=== PATIENT | male | born 1960 | race Hispanic/Latino ===

== ENCOUNTER 2018-04-03 09:45 | Inpatient (IN) | payer OTHER ==
[2018-04-03] MEDS ORDERED: LASIX IV ONE (10:54)
[2018-04-03] MEDS ORDERED: DUONEB *Not for PRN Use IH ONE (10:54)
[2018-04-03] MEDS ORDERED: NACL 0.9% 1000 ML 2,500 ML IV ONE (10:55)
--- NOTE | 2018-04-03 11:18 | Emergency Department Report ---
HPI - General Chief Complaint: Dyspnea/Respdistress Time Seen by Provider: 04/03/18 10:25 - HPI HPI: Patient is a 57-year-old male with a history of lung cancer, on chemotherapy, who presents for evaluation of dyspnea. The patient reports 1 day of constant and severe dyspnea, exacerbated with exertion or activity, improved with sitting up at rest. He also reports associated productive cough for the past one to 2 days. The patient denies fever, chest pain, neck pain, parasthesias, hemoptysis, dizziness, syncope, unilateral leg swelling, calf muscle pain. ED Past Medical Hx - Past Medical History Hx Hypertension: Yes Hx Diabetes: Yes Additional medical history: Lung CA - Social History Smoking Status: Former Smoker Substance Use Type: None - Medications Home Medications: Home Medications Medication Instructions Recorded Confirmed Last Taken Type Meclizine [Antivert] 25 mg PO TID PRN #30 tablet 01/27/16 04/03/18 Unknown Rx Promethazine [Phenergan TAB] 25 mg PO Q6HR PRN #20 tab 01/27/16 04/03/18 Unknown Rx Losartan 50 mg PO DAILY 04/03/18 04/03/18 Unknown History metFORMIN 500 mg PO BID 04/03/18 04/03/18 Unknown History ED Review of Systems ROS: Stated complaint: SHORTNESS OF BREATH Other details as noted in HPI Constitutional: denies: fever ENT: denies: throat or neck pain Respiratory: reports: cough, shortness of breath Cardiovascular: denies: chest pain Endocrine: denies unexplained weight loss or gain Gastrointestinal: denies: abdominal pain, nausea Genitourinary: denies: dysuria Musculoskeletal: denies: leg swelling Skin: denies: rash Neurological: denies: headache Hematological/Lymphatic: denies: easy bleeding or easy bruising Psych: denies sadness or hopelessness Physical Exam - Physical Exam Vital Signs: Vital Signs 04/03/18 09:50 Temperature 98.4 F Pulse Rate 131 H Respiratory 28 H Rate Blood Pressure 133/86 O2 Sat by Pulse 84 Oximetry Physical Exam: General: well-nourished, well-developed, in mild respiratory distress Head: Normocephalic, atraumatic Eyes: normal sclera ENT: Mucous membranes are pale and dry Neck: trachea midline, neck supple, No neck stiffness, no cervical adenopathy Respiratory: Diminished breath sounds and rhonchi present to bibasilar lung godinez, wheezing present to a prolonged feels Cardio: S1 and S2 present, no murmurs, rubs, gallops, capillary refill is delayed Abdomen: Normoactive bowel sounds, soft abdomen, no rigidity, no guarding or rebound tenderness Chest WALL/Back: No tenderness to palpation of the chest wall, no CVA tenderness with percussion Musc: No pitting edema Skin: No rash Neuro: no facial drooping, normal speech Psych: Normal affect ED Course Vital Signs 04/03/18 09:50 Temperature 98.4 F Pulse Rate 131 H Respiratory 28 H Rate Blood Pressure 133/86 O2 Sat by Pulse 84 Oximetry ED Medical Decision Making - Lab Data Result diagrams: 04/03/18 11:06 04/03/18 11:06 - Medical Decision Making The patient was seen and examined by myself. The patient is placed on a groundwater monitoring technician and continuous pulse ox. On initial evaluation, the patient was found to be in mild respiratory distress with low oxygen saturation, O2 sat 85% on room air. The patient is placed on a nonrebreather and given a neb breathing treatment. Evaluation orders were placed. Multiple bedside assessments were performed to assess patient's responsiveness to breathing treatments and supplemental oxygenation. EKG is negative for ST elevation or depression or other changes suggestive of acute cardiac infarct. Lab results revealed leukocytosis, WBC 16.9, elevated lactic acid 3, Chest x-ray exhibits bilateral upper lobe pneumonia. The patient given IV Zosyn for treatment of probable pneumonia. The on-call hospitalist service was contacted. They agreed to admit the patient for further treatment and close monitoring. The ED admit order was placed. The patient was admitted in guarded condition. Critical Care Time: Yes Critical care time in (mins) excluding proc time.: 35 Critical care attestation.: Due to the critical nature of this patients presentation, which necessitated multiple bedside assessments, manipulation and supportive measures to prevent further life threatening deterioration, I would like to bill for a total of 35 minutes of critical care time. This was exclusive of any separately billable procedures. Critical Care Time: 35 min ED Disposition Clinical Impression: Dehydration, Acute respiratory failure with hypoxia, Lactic acidosis Pneumonia Qualifiers: Pneumonia type: due to unspecified organism Laterality: bilateral Lung location : upper lobe of lung Qualified Code(s): J18.1 - Lobar pneumonia, unspecified organism Leukocytosis Qualifiers: Leukocytosis type: unspecified Qualified Code(s): D72.829 - Elevated white blood cell count, unspecified Disposition: DC-09 OP ADMIT IP TO THIS HOSP Is pt being admited?: Yes Does the pt Need Aspirin: Yes Condition: Critical Instructions: Bacterial Pneumonia (ED) Referrals: PRIMARY CARE, [Primary Care Provider] - 3-5 Days Time of Disposition: 12:13
[2018-04-03 11:48] LABS: Hematocrit 30.6 % (35.5-45.6); Hemoglobin 10.8 gm/dl (11.8-15.2); Mean Corpuscular HGB Conc 35 % (32-34); Mean Corpuscular Hemoglobin 32 pg (28-32); Mean Corpuscular Volume 92 fl (84-94); Platelet Count 384 K/mm3 (140-440); Red Blood Count 3.33 M/mm3 (3.65-5.03)
--- NOTE | 2018-04-03 11:50 | XRay Report ---
FINAL REPORT EXAM: XR CHEST 1V AP HISTORY: dyspnea, cough TECHNIQUE: Chest, portable upright PRIORS: None. FINDINGS: There is infiltrate in the right lower lobe. There is a small right pleural effusion. There is some patchy infiltrate in the left midlung. There is no pneumothorax seen. IMPRESSION: Left upper and right lower lobe infiltrates. Small right pleural effusion.
[2018-04-03] MEDS ORDERED: BABY ASPIRIN PO ONE (12:14)
[2018-04-03 12:28] LABS: Alanine Aminotransferase 52 units/L (7-56); BUN/Creatinine Ratio 22; Blood Urea Nitrogen 11 mg/dL (9-20); Calcium 8.9 mg/dL (8.4-10.2); Hemolysis Index 4
[2018-04-03] MEDS ORDERED: ZOSYN/NS 3.375GM/50ML 3.375 GM/50 ML BAG IV ONE (13:00)
[2018-04-03 14:06] LABS: Band Neutrophils # (Manual) 0.3 K/mm3; Basophils % (Manual) 0 % (0.0-1.8); Eosinophils % (Manual) 0 % (0.0-4.3); Total Cells Counted 100
[2018-04-03 14:09] LABS: Platelet Estimate Consistent w Auto; RBC Morphology Normal
[2018-04-03] MEDS ORDERED: TYLENOL PO PRN (21:53)
[2018-04-03] MEDS ORDERED: ZOFRAN IV PRN (21:53)
[2018-04-03] MEDS ORDERED: PERCOCET 5/325 PO PRN ×2 (21:53→21:58)
[2018-04-03] MEDS ORDERED: MORPHINE IV PRN (21:53)
[2018-04-03] MEDS ORDERED: SODIUM CHLORIDE FLUSH SYRINGE 10 ML IV PRN (21:53)
--- NOTE | 2018-04-03 21:53 | History and Physical Report ---
History of Present Illness Date of examination: 04/03/18 Date of admission: 04/03/18 13:45 Chief complaint: Chief complaint: Cough and shortness of breath for 2 days History of present illness: KATLYN: 57-year-old male with history of hypertension and type 2 diabetes and lung cancer diagnosed in 2011 followed by chemotherapy at that time comes in for cough productive of yellow sputum for 2 days. Also shortness of breath and wheezing present. Patient denies fever. No hemoptysis. No chest pain. Patient had chemotherapy in 2011. Also had radiation therapy at that time. Follows with [place] [facility]. Patient was hypoxic initially and 100% nonrebreather has to be used. Symptoms resolved with oxygen. Past Medical History Hx Hypertension: Yes Hx Diabetes: Yes Additional medical history: Lung CA Social History Smoking Status: Former Smoker Substance Use Type: None Family history Htn Surgical history N/A - Medications Home Medications: Home Medications Medication Instructions Recorded Confirmed Last Taken Type Meclizine [Antivert] 25 mg PO TID PRN #30 tablet 01/27/16 04/03/18 Unknown Rx Promethazine [Phenergan TAB] 25 mg PO Q6HR PRN #20 tab 01/27/16 04/03/18 Unknown Rx Losartan 50 mg PO DAILY 04/03/18 04/03/18 Unknown History metFORMIN 500 mg PO BID 04/03/18 04/03/18 Unknown History Review of Systems ROS: Stated complaint: SHORTNESS OF BREATH Other details as noted in HPI Constitutional: denies: fever ENT: denies: throat or neck pain Respiratory: reports: cough, shortness of breath Cardiovascular: denies: chest pain Endocrine: denies unexplained weight loss or gain Gastrointestinal: denies: abdominal pain, nausea Genitourinary: denies: dysuria Musculoskeletal: denies: leg swelling Skin: denies: rash Neurological: denies: headache Hematological/Lymphatic: denies: easy bleeding or easy bruising Psych: denies sadness or hopelessness Medications and Allergies Allergies Allergy/AdvReac Type Severity Reaction Status Date / Time No Known Allergies Allergy Verified 04/03/18 09:50 Home Medications Medication Instructions Recorded Confirmed Last Taken Type Meclizine [Antivert] 25 mg PO TID PRN #30 tablet 01/27/16 04/03/18 Unknown Rx Promethazine [Phenergan TAB] 25 mg PO Q6HR PRN #20 tab 01/27/16 04/03/18 Unknown Rx Losartan 50 mg PO DAILY 04/03/18 04/03/18 Unknown History metFORMIN 500 mg PO BID 04/03/18 04/03/18 Unknown History Exam - Constitutional Vitals: Temp Pulse Resp BP Pulse Ox 98.1 F 92 H 18 95/62 96 04/03/18 19:48 04/03/18 21:00 04/03/18 19:48 04/03/18 19:48 04/03/18 19:48 General appearance: Present: no acute distress, well-nourished - EENT Eyes: Present: PERRL ENT: hearing intact, clear oral mucosa - Neck Neck: Present: supple, normal ROM - Respiratory Respiratory effort: normal Respiratory: bilateral: CTA, rhonchi - Cardiovascular Heart rate: 80 Rhythm: regular Heart Sounds: Present: S1 & S2. Absent: rub, click - Extremities Extremities: no ischemia, pulses intact, pulses symmetrical, No edema Peripheral Pulses: within normal limits - Abdominal General gastrointestinal: Present: soft, non-tender, non-distended, normal bowel sounds Male genitourinary: Present: normal - Rectal Rectal Exam: deferred - Integumentary Integumentary: Present: clear, warm, dry - Musculoskeletal Musculoskeletal: gait normal, strength equal bilaterally - Psychiatric Psychiatric: appropriate mood/affect, intact judgment & insight - Neurologic Neurologic: CNII-XII intact, moves all extremities - Allied Health Allied health notes reviewed: nursing, case management Results - Labs CBC & Chem 7: 04/03/18 11:06 04/03/18 11:06 Labs: Laboratory Last Values WBC 16.9 K/mm3 (4.5-11.0) H 04/03/18 11:06 RBC 3.33 M/mm3 (3.65-5.03) L 04/03/18 11:06 Hgb 10.8 gm/dl (11.8-15.2) L 04/03/18 11:06 Hct 30.6 % (35.5-45.6) L 04/03/18 11:06 MCV 92 fl (84-94) 04/03/18 11:06 MCH 32 pg (28-32) 04/03/18 11:06 MCHC 35 % (32-34) H 04/03/18 11:06 RDW 15.0 % (13.2-15.2) 04/03/18 11:06 Plt Count 384 K/mm3 (140-440) 04/03/18 11:06 Add Manual Diff Complete 04/03/18 11:06 Total Counted 100 04/03/18 11:06 Seg Neutrophils % Ice Bag Assembler 04/03/18 11:06 Seg Neuts % (Manual) 94.0 % (40.0-70.0) H 04/03/18 11:06 Band Neutrophils % 2.0 % 04/03/18 11:06 Lymphocytes % (Manual) 1.0 % (13.4-35.0) L 04/03/18 11:06 Reactive Lymphs % (Man) 0 % 04/03/18 11:06 Monocytes % (Manual) 3.0 % (0.0-7.3) 04/03/18 11:06 Eosinophils % (Manual) 0 % (0.0-4.3) 04/03/18 11:06 Basophils % (Manual) 0 % (0.0-1.8) 04/03/18 11:06 Metamyelocytes % 0 % 04/03/18 11:06 Myelocytes % 0 % 04/03/18 11:06 Promyelocytes % 0 % 04/03/18 11:06 Blast Cells % 0 % 04/03/18 11:06 Nucleated RBC % Not Reportable 04/03/18 11:06 Seg Neutrophils # Man 15.9 K/mm3 (1.8-7.7) H 04/03/18 11:06 Band Neutrophils # 0.3 K/mm3 04/03/18 11:06 Lymphocytes # (Manual) 0.2 K/mm3 (1.2-5.4) L 04/03/18 11:06 Abs React Lymphs (Man) 0.0 K/mm3 04/03/18 11:06 Monocytes # (Manual) 0.5 K/mm3 (0.0-0.8) 04/03/18 11:06 Eosinophils # (Manual) 0.0 K/mm3 (0.0-0.4) 04/03/18 11:06 Basophils # (Manual) 0.0 K/mm3 (0.0-0.1) 04/03/18 11:06 Metamyelocytes # 0.0 K/mm3 04/03/18 11:06 Myelocytes # 0.0 K/mm3 04/03/18 11:06 Promyelocytes # 0.0 K/mm3 04/03/18 11:06 Blast Cells # 0.0 K/mm3 04/03/18 11:06 WBC Morphology Not Reportable 04/03/18 11:06 Hypersegmented Neuts Not Reportable 04/03/18 11:06 Hyposegmented Neuts Not Reportable 04/03/18 11:06 Hypogranular Neuts Not Reportable 04/03/18 11:06 Smudge Cells Not Reportable 04/03/18 11:06 Toxic Granulation Not Reportable 04/03/18 11:06 Toxic Vacuolation Not Reportable 04/03/18 11:06 Dohle Bodies Not Reportable 04/03/18 11:06 Pelger-Huet Anomaly Not Reportable 04/03/18 11:06 Marlene Rods Not Reportable 04/03/18 11:06 Platelet Estimate Consistent w auto 04/03/18 11:06 Clumped Platelets Not Reportable 04/03/18 11:06 Plt Clumps, EDTA Not Reportable 04/03/18 11:06 Large Platelets Not Reportable 04/03/18 11:06 Giant Platelets Not Reportable 04/03/18 11:06 Platelet Satelliting Not Reportable 04/03/18 11:06 Plt Morphology Comment Not Reportable 04/03/18 11:06 RBC Morphology Normal 04/03/18 11:06 Dimorphic RBCs Not Reportable 04/03/18 11:06 Polychromasia Not Reportable 04/03/18 11:06 Hypochromasia Not Reportable 04/03/18 11:06 Poikilocytosis Not Reportable 04/03/18 11:06 Anisocytosis Not Reportable 04/03/18 11:06 Microcytosis Not Reportable 04/03/18 11:06 Macrocytosis Not Reportable 04/03/18 11:06 Spherocytes Not Reportable 04/03/18 11:06 Pappenheimer Bodies Not Reportable 04/03/18 11:06 Sickle Cells Not Reportable 04/03/18 11:06 Target Cells Not Reportable 04/03/18 11:06 Tear Drop Cells Not Reportable 04/03/18 11:06 Ovalocytes Not Reportable 04/03/18 11:06 Helmet Cells Not Reportable 04/03/18 11:06 [place] Bodies Not Reportable 04/03/18 11:06 [place] Rings Not Reportable 04/03/18 11:06 [place] Cells Not Reportable 04/03/18 11:06 Bite Cells Not Reportable 04/03/18 11:06 Crenated Cell Not Reportable 04/03/18 11:06 Elliptocytes Not Reportable 04/03/18 11:06 Acanthocytes (Spur) Not Reportable 04/03/18 11:06 Rouleaux Not Reportable 04/03/18 11:06 Hemoglobin C Crystals Not Reportable 04/03/18 11:06 Schistocytes Not Reportable 04/03/18 11:06 Malaria parasites Not Reportable 04/03/18 11:06 Yaniv Bodies Not Reportable 04/03/18 11:06 Hem Pathologist Commnt No 04/03/18 11:06 POC ABG pH 7.475 (7.35-7.45) H 04/03/18 11:32 POC ABG pCO2 28.7 (35-45) L 04/03/18 11:32 POC ABG pO2 87 (80-105) 04/03/18 11:32 POC ABG HCO3 21.1 04/03/18 11:32 POC ABG Total CO2 22 04/03/18 11:32 POC ABG O2 Sat 97 04/03/18 11:32 POC ABG Base Excess -2 04/03/18 11:32 FiO2 100 % 04/03/18 11:32 Sodium 129 mmol/L (137-145) L 04/03/18 11:06 Potassium 4.4 mmol/L (3.6-5.0) 04/03/18 11:06 Chloride 88.1 mmol/L (98-107) L 04/03/18 11:06 Carbon Dioxide 20 mmol/L (22-30) L 04/03/18 11:06 Anion Gap 25 mmol/L 04/03/18 11:06 BUN 11 mg/dL (9-20) 04/03/18 11:06 Creatinine 0.5 mg/dL (0.8-1.5) L 04/03/18 11:06 Estimated GFR > 60 ml/min 04/03/18 11:06 BUN/Creatinine Ratio 22 % 04/03/18 11:06 Glucose 154 mg/dL (75-100) H 04/03/18 11:06 Lactic Acid 2.90 mmol/L (0.7-2.0) H* 04/03/18 19:28 Calcium 8.9 mg/dL (8.4-10.2) 04/03/18 11:06 Total Bilirubin 0.80 mg/dL (0.1-1.2) 04/03/18 11:06 AST 32 units/L (5-40) 04/03/18 11:06 ALT 52 units/L (7-56) 04/03/18 11:06 Alkaline Phosphatase 92 units/L (35-129) 04/03/18 11:06 NT-Pro-B Natriuret Pep 388.8 pg/mL (0-900) 04/03/18 11:06 Total Protein 6.4 g/dL (6.3-8.2) 04/03/18 11:06 Albumin 3.0 g/dL (3.9-5) L 04/03/18 11:06 Albumin/Globulin Ratio 0.9 % 04/03/18 11:06 - Imaging and Cardiology EKG: report reviewed (sinus tachycardia heart rate of 117 per minute no acute ST-T wave changes) Imaging and Cardiology: Chest x-ray: FINDINGS: There is infiltrate in the right lower lobe. There is a small right pleural effusion. There is some patchy infiltrate in the left midlung. There is no pneumothorax seen. IMPRESSION: Left upper and right lower lobe infiltrates. Small right pleural effusion. Assessment and Plan Advance Directives: Yes (full code) VTE prophylaxis?: Chemical Plan of care discussed with patient/family: Yes - Patient Problems (1) Acute respiratory failure with hypoxia Current Visit: Yes Status: Acute Plan to address problem: Continue oxygen as needed Duonebs IV Solu-Medrol and IV Zosyn (2) Bilateral pneumonia Current Visit: Yes Status: Acute Plan to address problem: IV Zosyn and bronchodilators (3) Lung cancer Current Visit: Yes Status: Chronic Qualifiers: Laterality: unspecified laterality Plan to address problem: Patient follows with [facility] Dr Curtis consulted (4) HTN (hypertension) Current Visit: Yes Status: Chronic Qualifiers: Hypertension type: essential hypertension Qualified Code(s): I10 - Essential (primary) hypertension Plan to address problem: Continue antihypertensives (5) T2DM (type 2 diabetes mellitus) Current Visit: Yes Status: Chronic Qualifiers: Diabetes mellitus chcf insulin use: without head screen worker use Plan to address problem: continue metformin Continue coverage Check hemoglobin A1c (6) DVT prophylaxis Current Visit: Yes Status: Acute Plan to address problem: Patient initiated on Lovenox 40 mg subcutaneous daily
[2018-04-03] MEDS ORDERED: NACL 0.9% 1000 ML 1,000 ML IV SCH (22:00)
[2018-04-03] MEDS ORDERED: PHENERGAN PO PRN (22:04)
[2018-04-03] MEDS ORDERED: ANTIVERT PO PRN (22:04)
[2018-04-03] MEDS ORDERED: NON-FORMULARY (Metformin 500 MG) PO SCH (22:15)
[2018-04-04] MEDS: GLUCOPHAGE PO SCH ×3 (02:04→17:58)
[2018-04-04] MEDS: PEPCID IV SCH ×3 (02:05→21:26)
[2018-04-04] MEDS: SODIUM CHLORIDE FLUSH SYRINGE 10 ML IV SCH ×3 (02:05→21:26)
[2018-04-04] MEDS: ZOSYN/NS 4.5GM/100ML 4.5 GM/100 ML VIAL IV SCH ×4 (02:05→21:25)
[2018-04-04] MEDS: NACL 0.9% 1000 ML 1,000 ML IV SCH ×2 (02:11→13:44)
[2018-04-04 04:30] LABS: Hematocrit 29.5 % (35.5-45.6); Hemoglobin 9.7 gm/dl (11.8-15.2); Mean Corpuscular HGB Conc 33 % (32-34); Mean Corpuscular Hemoglobin 31 pg (28-32); Mean Corpuscular Volume 93 fl (84-94); Platelet Count 354 K/mm3 (140-440); Red Blood Count 3.16 M/mm3 (3.65-5.03); Red Cell Distribution Width 15.2 % (13.2-15.2)
[2018-04-04 05:31] LABS: Basophils % (Manual) 0 % (0.0-1.8); Eosinophils % (Manual) 0 % (0.0-4.3); Total Cells Counted 100
[2018-04-04 05:33] LABS: Anisocytosis 1+; Platelet Estimate Consistent w Auto
[2018-04-04 06:05] LABS: Alanine Aminotransferase 47 units/L (7-56); Albumin 2.5 g/dL (3.9-5); BUN/Creatinine Ratio 30; Blood Urea Nitrogen 15 mg/dL (9-20); Calcium 9.3 mg/dL (8.4-10.2); Hemolysis Index 0
[2018-04-04] MEDS: COZAAR PO SCH (09:08)
[2018-04-04] MEDS: HumaLOG SUB-Q SCH ×4 (09:09→22:55)
[2018-04-04] MEDS: DUONEB *Not for PRN Use IH SCH ×4 (09:10→20:42)
--- NOTE | 2018-04-04 09:39 | Event Note ---
Date: 04/04/18 records reviewed, asked to see for lung ca. labs reviewed, Full eval/rec to follow.
[2018-04-04] MEDS ORDERED: NON-FORMULARY (Losartan 50 MG) PO SCH (10:00)
--- NOTE | 2018-04-04 14:09 | Progress Note ---
Assessment and Plan Assessment and plan: Mr. Caceres is a 57 yo man with a history of tonsil cancer, hypertension, type 2 dm and Lung cancer diagnosis last year now with metastatic disease to the right hip and right rib currently on chemotherapy per patient who presented with sob and cough. * pCXR showed bilateral upper lung infiltrates. 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 Follow-up on current diagnosis of sob and cough. Overnight uneventful. Patient denies any chest pain, nausea/vomiting or severe headaches. Imaging, nursing note, chart, labs and old chart reviewed. Discussed with patient. Hospitalist Physical - Physical exam Narrative exam: GEN: ill appearing, thin frail, NAD, Awake, Alert, Orientated HEENT: NCAT, EOMI, PERRL, OP Clear NECK: supple, no adenopathy, no thyromegaly, no JVD CVS/HEART: RRR, normal S1S2, pulses present bilaterally CHEST/LUNGS: coarse bs bilaterally, Symmetrical chest expansion, good air entry bilaterally GI/Abdomen: soft, NTND, good bowel sounds, no guarding or rebound /Bladder: no suprapubic tenderness, no CVA or paraspinal tenderness EXT/Skin: no c/c/e, no obvious rash MSK: FROM x 4 Neuro: CN 2-12 grossly intact, no new focal deficits Psych: calm - Constitutional Vitals: Temp Pulse Resp BP Pulse Ox 98.0 F 97 H 18 92/55 94 04/04/18 11:23 04/04/18 11:23 04/04/18 11:23 04/04/18 11:23 04/04/18 11:23 General appearance: Present: no acute distress, well-nourished Results - Labs CBC & Chem 7: 04/04/18 04:07 04/04/18 04:07 Labs: Laboratory Last Values WBC 11.2 K/mm3 (4.5-11.0) H 04/04/18 04:07 RBC 3.16 M/mm3 (3.65-5.03) L 04/04/18 04:07 Hgb 9.7 gm/dl (11.8-15.2) L 04/04/18 04:07 Hct 29.5 % (35.5-45.6) L 04/04/18 04:07 MCV 93 fl (84-94) 04/04/18 04:07 MCH 31 pg (28-32) 04/04/18 04:07 MCHC 33 % (32-34) 04/04/18 04:07 RDW 15.2 % (13.2-15.2) 04/04/18 04:07 Plt Count 354 K/mm3 (140-440) 04/04/18 04:07 Add Manual Diff Complete 04/04/18 04:07 Total Counted 100 04/04/18 04:07 Seg Neutrophils % Purchasing Director 04/04/18 04:07 Seg Neuts % (Manual) 62.0 % (40.0-70.0) 04/04/18 04:07 Band Neutrophils % 36.0 % 04/04/18 04:07 Lymphocytes % (Manual) 1.0 % (13.4-35.0) L 04/04/18 04:07 Reactive Lymphs % (Man) 0 % 04/04/18 04:07 Monocytes % (Manual) 1.0 % (0.0-7.3) 04/04/18 04:07 Eosinophils % (Manual) 0 % (0.0-4.3) 04/04/18 04:07 Basophils % (Manual) 0 % (0.0-1.8) 04/04/18 04:07 Metamyelocytes % 0 % 04/04/18 04:07 Myelocytes % 0 % 04/04/18 04:07 Promyelocytes % 0 % 04/04/18 04:07 Blast Cells % 0 % 04/04/18 04:07 Nucleated RBC % Not Reportable 04/04/18 04:07 Seg Neutrophils # Man 6.9 K/mm3 (1.8-7.7) 04/04/18 04:07 Band Neutrophils # 4.0 K/mm3 04/04/18 04:07 Lymphocytes # (Manual) 0.1 K/mm3 (1.2-5.4) L 04/04/18 04:07 Abs React Lymphs (Man) 0.0 K/mm3 04/04/18 04:07 Monocytes # (Manual) 0.1 K/mm3 (0.0-0.8) 04/04/18 04:07 Eosinophils # (Manual) 0.0 K/mm3 (0.0-0.4) 04/04/18 04:07 Basophils # (Manual) 0.0 K/mm3 (0.0-0.1) 04/04/18 04:07 Metamyelocytes # 0.0 K/mm3 04/04/18 04:07 Myelocytes # 0.0 K/mm3 04/04/18 04:07 Promyelocytes # 0.0 K/mm3 04/04/18 04:07 Blast Cells # 0.0 K/mm3 04/04/18 04:07 WBC Morphology Not Reportable 04/04/18 04:07 Hypersegmented Neuts Not Reportable 04/04/18 04:07 Hyposegmented Neuts Not Reportable 04/04/18 04:07 Hypogranular Neuts Not Reportable 04/04/18 04:07 Smudge Cells Not Reportable 04/04/18 04:07 Toxic Granulation Not Reportable 04/04/18 04:07 Toxic Vacuolation Not Reportable 04/04/18 04:07 Dohle Bodies Not Reportable 04/04/18 04:07 Pelger-Huet Anomaly Not Reportable 04/04/18 04:07 Marlene Rods Not Reportable 04/04/18 04:07 Platelet Estimate Consistent w auto 04/04/18 04:07 Clumped Platelets Not Reportable 04/04/18 04:07 Plt Clumps, EDTA Not Reportable 04/04/18 04:07 Large Platelets Not Reportable 04/04/18 04:07 Giant Platelets Not Reportable 04/04/18 04:07 Platelet Satelliting Not Reportable 04/04/18 04:07 Plt Morphology Comment Not Reportable 04/04/18 04:07 RBC Morphology Not Reportable 04/04/18 04:07 Dimorphic RBCs Not Reportable 04/04/18 04:07 Polychromasia Not Reportable 04/04/18 04:07 Hypochromasia Not Reportable 04/04/18 04:07 Poikilocytosis Not Reportable 04/04/18 04:07 Anisocytosis 1+ 04/04/18 04:07 Microcytosis Not Reportable 04/04/18 04:07 Macrocytosis Not Reportable 04/04/18 04:07 Spherocytes Not Reportable 04/04/18 04:07 Pappenheimer Bodies Not Reportable 04/04/18 04:07 Sickle Cells Not Reportable 04/04/18 04:07 Target Cells Not Reportable 04/04/18 04:07 Tear Drop Cells Not Reportable 04/04/18 04:07 Ovalocytes Not Reportable 04/04/18 04:07 Helmet Cells Not Reportable 04/04/18 04:07 [place] Bodies Not Reportable 04/04/18 04:07 [place] Rings Not Reportable 04/04/18 04:07 [place] Cells Not Reportable 04/04/18 04:07 Bite Cells Not Reportable 04/04/18 04:07 Crenated Cell Not Reportable 04/04/18 04:07 Elliptocytes Not Reportable 04/04/18 04:07 Acanthocytes (Spur) Not Reportable 04/04/18 04:07 Rouleaux Not Reportable 04/04/18 04:07 Hemoglobin C Crystals Not Reportable 04/04/18 04:07 Schistocytes Not Reportable 04/04/18 04:07 Malaria parasites Not Reportable 04/04/18 04:07 Yaniv Bodies Not Reportable 04/04/18 04:07 Hem Pathologist Commnt No 04/04/18 04:07 POC ABG pH 7.475 (7.35-7.45) H 04/03/18 11:32 POC ABG pCO2 28.7 (35-45) L 04/03/18 11:32 POC ABG pO2 87 (80-105) 04/03/18 11:32 POC ABG HCO3 21.1 04/03/18 11:32 POC ABG Total CO2 22 04/03/18 11:32 POC ABG O2 Sat 97 04/03/18 11:32 POC ABG Base Excess -2 04/03/18 11:32 FiO2 100 % 04/03/18 11:32 Sodium 133 mmol/L (137-145) L 04/04/18 04:07 Potassium 4.3 mmol/L (3.6-5.0) 04/04/18 04:07 Chloride 93.3 mmol/L (98-107) L 04/04/18 04:07 Carbon Dioxide 28 mmol/L (22-30) D 04/04/18 04:07 Anion Gap 16 mmol/L 04/04/18 04:07 BUN 15 mg/dL (9-20) 04/04/18 04:07 Creatinine 0.5 mg/dL (0.8-1.5) L 04/04/18 04:07 Estimated GFR > 60 ml/min 04/04/18 04:07 BUN/Creatinine Ratio 30 % 04/04/18 04:07 Glucose 204 mg/dL (75-100) H 04/04/18 04:07 POC Glucose 293 (70-105) H 04/04/18 11:30 Hemoglobin A1c 7.2 % (4-6) H 04/03/18 21:53 Osmolality 281 Mosm/kg 04/03/18 23:33 Lactic Acid 1.60 mmol/L (0.7-2.0) 04/04/18 04:07 Calcium 9.3 mg/dL (8.4-10.2) 04/04/18 04:07 Total Bilirubin 0.50 mg/dL (0.1-1.2) 04/04/18 04:07 AST 42 units/L (5-40) H 04/04/18 04:07 ALT 47 units/L (7-56) 04/04/18 04:07 Alkaline Phosphatase 73 units/L (35-129) 04/04/18 04:07 NT-Pro-B Natriuret Pep 388.8 pg/mL (0-900) 04/03/18 11:06 Total Protein 6.3 g/dL (6.3-8.2) 04/04/18 04:07 Albumin 2.5 g/dL (3.9-5) L 04/04/18 04:07 Albumin/Globulin Ratio 0.7 % 04/04/18 04:07
[2018-04-04] MEDS: TESSALON PERLES PO SCH ×2 (17:58→21:26)
--- NOTE | 2018-04-04 22:27 | Consultation ---
History of Present Illness - Reason for Consult Consult date: 04/04/18 Lung cancer. 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 Past History Past Medical History: diabetes Medications and Allergies Allergies Allergy/AdvReac Type Severity Reaction Status Date / Time No Known Allergies Allergy Verified 04/03/18 09:50 Home Medications Medication Instructions Recorded Confirmed Last Taken Type Meclizine [Antivert] 25 mg PO TID PRN #30 tablet 01/27/16 04/03/18 Unknown Rx Promethazine [Phenergan TAB] 25 mg PO Q6HR PRN #20 tab 01/27/16 04/03/18 Unknown Rx Losartan 50 mg PO DAILY 04/03/18 04/03/18 Unknown History metFORMIN 500 mg PO BID 04/03/18 04/03/18 Unknown History Active Meds: Active Medications Acetaminophen (Tylenol) 650 mg PO Q4H PRN PRN Reason: Pain MILD(1-3)/Fever >100.5/FALL Albuterol/Ipratropium (Duoneb *Not For Prn Use*) 1 ampul IH QIDRT [facility] Last Admin: 04/04/18 20:42 Dose: 1 ampul Benzonatate (Tessalon Perles) 100 mg PO Q8HR [facility] Last Admin: 04/04/18 21:26 Dose: 100 mg Famotidine (Pepcid) 20 mg IV BID [facility] Last Admin: 04/04/18 21:26 Dose: 20 mg Piperacillin Sod/Tazobactam Sod (Zosyn/Ns 4.5gm/100ml) 4.5 gm in 100 mls @ 200 mls/hr IV Q8HR [facility]; Protocol Last Admin: 04/04/18 21:25 Dose: 200 mls/hr Sodium Chloride (Nacl 0.9% 1000 Ml) 1,000 mls @ 75 mls/hr IV DIRECT [facility] Last Admin: 04/04/18 13:44 Dose: 75 mls/hr Insulin Human Lispro (Humalog) 0 unit SUB-Q ACHS [facility]; Protocol Last Admin: 04/04/18 18:04 Dose: Not Given Losartan Potassium (Cozaar) 50 mg PO DAILY [facility] Last Admin: 04/04/18 09:08 Dose: Not Given Meclizine HCl (Antivert) 25 mg PO TID PRN PRN Reason: Vertigo Last Admin: 04/04/18 02:04 Dose: 25 mg Metformin HCl (Glucophage) 500 mg PO BIDDIAB [facility] Last Admin: 04/04/18 17:58 Dose: 500 mg Methylprednisolone Sodium Succinate (Solu-Medrol) 40 mg IV Q8HR [facility] Last Admin: 04/04/18 21:26 Dose: 40 mg Morphine Sulfate (Morphine) 2 mg IV Q4H PRN PRN Reason: Pain, Moderate (4-6) Ondansetron HCl (Zofran) 4 mg IV Q8H PRN PRN Reason: Nausea And Vomiting Oxycodone/Acetaminophen (Percocet 5/325) 1 tab PO Q6H PRN PRN Reason: Pain, Moderate (4-6) Promethazine HCl (Phenergan) 25 mg PO Q6HR PRN PRN Reason: Nausea Sodium Chloride (Sodium Chloride Flush Syringe 10 Ml) 10 ml IV BID [facility] Last Admin: 04/04/18 21:26 Dose: 10 ml Sodium Chloride (Sodium Chloride Flush Syringe 10 Ml) 10 ml IV PRN PRN PRN Reason: LINE FLUSH Review of Systems Respiratory: cough, shortness of breath Exam - Constitutional Vitals: Temp Pulse Resp BP Pulse Ox 97.2 F L 104 H 18 118/75 97 04/04/18 20:52 04/04/18 20:52 04/04/18 20:52 04/04/18 20:52 04/04/18 20:52 General appearance: Present: mild distress - EENT Eyes: Present: PERRL ENT: hearing intact, clear oral mucosa - Neck Neck: Present: supple, normal ROM - Respiratory Respiratory: bilateral: diminished, rhonchi - Cardiovascular Heart Sounds: Present: S1 & S2. Absent: rub, click - Extremities Extremities: pulses symmetrical, No edema Peripheral Pulses: within normal limits - Abdominal General gastrointestinal: Present: soft, non-tender, non-distended, normal bowel sounds Male genitourinary: Present: deferred - Rectal Rectal Exam: deferred - Integumentary Integumentary: Present: clear, warm, dry - Musculoskeletal Musculoskeletal: gait normal, strength equal bilaterally - Psychiatric Psychiatric: appropriate mood/affect, intact judgment & insight - Neurologic Neurologic: CNII-XII intact, moves all extremities Results - Labs CBC & Chem 7: 04/04/18 04:07 04/04/18 04:07 Labs: Abnormal lab results 04/03/18 04/03/18 04/04/18 Range/Units 21:53 22:51 00:58 WBC (4.5-11.0) K/mm3 RBC (3.65-5.03) M/mm3 Hgb (11.8-15.2) gm/dl Hct (35.5-45.6) % Lymphocytes % (Manual) (13.4-35.0) % Lymphocytes # (Manual) (1.2-5.4) K/mm3 Sodium (137-145) mmol/L Chloride (98-107) mmol/L Creatinine (0.8-1.5) mg/dL Glucose (75-100) mg/dL POC Glucose (70-105) Hemoglobin A1c 7.2 H (4-6) % Lactic Acid 2.80 H* 2.70 H* (0.7-2.0) mmol/L AST (5-40) units/L Albumin (3.9-5) g/dL 04/04/18 04/04/18 04/04/18 Range/Units 04:07 04:07 05:17 WBC 11.2 H (4.5-11.0) K/mm3 RBC 3.16 L (3.65-5.03) M/mm3 Hgb 9.7 L (11.8-15.2) gm/dl Hct 29.5 L (35.5-45.6) % Lymphocytes % (Manual) 1.0 L (13.4-35.0) % Lymphocytes # (Manual) 0.1 L (1.2-5.4) K/mm3 Sodium 133 L (137-145) mmol/L Chloride 93.3 L (98-107) mmol/L Creatinine 0.5 L (0.8-1.5) mg/dL Glucose 204 H (75-100) mg/dL POC Glucose 198 H (70-105) Hemoglobin A1c (4-6) % Lactic Acid (0.7-2.0) mmol/L AST 42 H (5-40) units/L Albumin 2.5 L (3.9-5) g/dL 04/04/18 04/04/18 Range/Units 11:30 16:17 WBC (4.5-11.0) K/mm3 RBC (3.65-5.03) M/mm3 Hgb (11.8-15.2) gm/dl Hct (35.5-45.6) % Lymphocytes % (Manual) (13.4-35.0) % Lymphocytes # (Manual) (1.2-5.4) K/mm3 Sodium (137-145) mmol/L Chloride (98-107) mmol/L Creatinine (0.8-1.5) mg/dL Glucose (75-100) mg/dL POC Glucose 293 H 283 H (70-105) Hemoglobin A1c (4-6) % Lactic Acid (0.7-2.0) mmol/L AST (5-40) units/L Albumin (3.9-5) g/dL Assessment and Plan - Patient Problems (1) Acute respiratory failure with hypoxia Current Visit: Yes Status: Acute Plan to address problem: Follow pulm. (2) Bilateral pneumonia Current Visit: Yes Status: Acute Plan to address problem: Continue with current ABX/oxygen.Ct to r/o post obst pneumonitis.
[2018-04-05] MEDS: ZOSYN/NS 4.5GM/100ML 4.5 GM/100 ML VIAL IV SCH ×3 (05:23→21:45)
[2018-04-05] MEDS: TESSALON PERLES PO SCH ×3 (05:24→21:46)
[2018-04-05 07:23] LABS: Hematocrit 29.1 % (35.5-45.6); Hemoglobin 9.7 gm/dl (11.8-15.2); Mean Corpuscular HGB Conc 33 % (32-34); Mean Corpuscular Hemoglobin 31 pg (28-32); Mean Corpuscular Volume 94 fl (84-94); Platelet Count 399 K/mm3 (140-440); Red Cell Distribution Width 15.3 % (13.2-15.2)
[2018-04-05 07:41] LABS: BUN/Creatinine Ratio 32; Blood Urea Nitrogen 19 mg/dL (9-20); Calcium 9.5 mg/dL (8.4-10.2); Hemolysis Index 1
[2018-04-05] MEDS: GLUCOPHAGE PO SCH ×2 (08:00→21:00)
[2018-04-05] MEDS: HumaLOG SUB-Q SCH ×4 (08:16→21:49)
[2018-04-05] MEDS: DUONEB *Not for PRN Use IH SCH ×5 (08:30→21:28)
[2018-04-05] MEDS: SODIUM CHLORIDE FLUSH SYRINGE 10 ML IV SCH ×2 (10:00→21:47)
[2018-04-05] MEDS: COZAAR PO SCH (10:18)
[2018-04-05] MEDS: PEPCID IV SCH (10:19)
[2018-04-05] MEDS: NACL 0.9% 1000 ML 1,000 ML IV SCH (10:19)
--- NOTE | 2018-04-05 12:22 | Consultation ---
History of Present Illness Consult date: 04/05/18 Requesting physician: HARJINDER DOSS Reason for consult: lung mass (Lung Cancer), other (Acute Hypoxemic Resp Failure ; Bilateral Pneumonia; s/p recent chemotherapy) History of present illness: PULMONARY/CCM CONSULT NOTE (Full dictation # [id number]) Please see dictated notes for full details Past History Past Medical History: diabetes Medications and Allergies Allergies Allergy/AdvReac Type Severity Reaction Status Date / Time No Known Allergies Allergy Verified 04/03/18 09:50 Home Medications Medication Instructions Recorded Confirmed Last Taken Type Meclizine [Antivert] 25 mg PO TID PRN #30 tablet 01/27/16 04/03/18 Unknown Rx Promethazine [Phenergan TAB] 25 mg PO Q6HR PRN #20 tab 01/27/16 04/03/18 Unknown Rx Losartan 50 mg PO DAILY 04/03/18 04/03/18 Unknown History metFORMIN 1,000 mg PO BID 04/03/18 04/05/18 04/02/18 History Latanoprost 0.005% 1 drop IO QHS 04/05/18 04/05/18 04/02/18 History Active Meds: Active Medications Acetaminophen (Tylenol) 650 mg PO Q4H PRN PRN Reason: Pain MILD(1-3)/Fever >100.5/FALL Albuterol/Ipratropium (Duoneb *Not For Prn Use*) 1 ampul IH QIDRT [facility] Last Admin: 04/05/18 12:09 Dose: Not Given Benzonatate (Tessalon Perles) 100 mg PO Q8HR [facility] Last Admin: 04/05/18 05:24 Dose: 100 mg Famotidine (Pepcid) 20 mg IV BID [facility] Last Admin: 04/05/18 10:19 Dose: 20 mg Piperacillin Sod/Tazobactam Sod (Zosyn/Ns 4.5gm/100ml) 4.5 gm in 100 mls @ 200 mls/hr IV Q8HR [facility]; Protocol Last Admin: 04/05/18 05:23 Dose: 200 mls/hr Sodium Chloride (Nacl 0.9% 1000 Ml) 1,000 mls @ 75 mls/hr IV DIRECT [facility] Last Admin: 04/05/18 10:19 Dose: 75 mls/hr Insulin Human Lispro (Humalog) 0 unit SUB-Q ACHS [facility]; Protocol Last Admin: 04/05/18 12:07 Dose: Not Given Losartan Potassium (Cozaar) 50 mg PO DAILY [facility] Last Admin: 04/05/18 10:18 Dose: 50 mg Meclizine HCl (Antivert) 25 mg PO TID PRN PRN Reason: Vertigo Last Admin: 04/04/18 02:04 Dose: 25 mg Metformin HCl (Glucophage) 500 mg PO BIDDIAB [facility] Last Admin: 04/05/18 08:00 Dose: 500 mg Methylprednisolone Sodium Succinate (Solu-Medrol) 40 mg IV Q8HR [facility] Last Admin: 04/05/18 05:24 Dose: 40 mg Morphine Sulfate (Morphine) 2 mg IV Q4H PRN PRN Reason: Pain, Moderate (4-6) Ondansetron HCl (Zofran) 4 mg IV Q8H PRN PRN Reason: Nausea And Vomiting Oxycodone/Acetaminophen (Percocet 5/325) 1 tab PO Q6H PRN PRN Reason: Pain, Moderate (4-6) Promethazine HCl (Phenergan) 25 mg PO Q6HR PRN PRN Reason: Nausea Sodium Chloride (Sodium Chloride Flush Syringe 10 Ml) 10 ml IV BID [facility] Last Admin: 04/05/18 10:00 Dose: 10 ml Sodium Chloride (Sodium Chloride Flush Syringe 10 Ml) 10 ml IV PRN PRN PRN Reason: LINE FLUSH Physical Examination Vital signs: Vital Signs Temp Pulse Resp BP Pulse Ox 98.4 F 131 H 28 H 133/86 84 04/03/18 09:50 04/03/18 09:50 04/03/18 09:50 04/03/18 09:50 04/03/18 09:50 Results - Laboratory Findings CBC and BMP: 04/05/18 06:53 04/05/18 06:53 ABG POC ABG pH 7.475 (7.35-7.45) H 04/03/18 11:32 POC ABG pCO2 28.7 (35-45) L 04/03/18 11:32 POC ABG pO2 87 (80-105) 04/03/18 11:32 POC ABG HCO3 21.1 04/03/18 11:32 POC ABG Total CO2 22 04/03/18 11:32 POC ABG O2 Sat 97 04/03/18 11:32 Abnormal lab findings: Abnormal Labs 04/03/18 04/03/18 04/03/18 11:06 11:06 11:06 WBC 16.9 H RBC 3.33 L Hgb 10.8 L Hct 30.6 L MCHC 35 H RDW Seg Neuts % (Manual) 94.0 H Lymphocytes % (Manual) 1.0 L Seg Neutrophils # Man 15.9 H Lymphocytes # (Manual) 0.2 L POC ABG pH POC ABG pCO2 Sodium 129 L Chloride 88.1 L Carbon Dioxide 20 L Creatinine 0.5 L Glucose 154 H POC Glucose Hemoglobin A1c Lactic Acid 3.40 H* AST Albumin 3.0 L 04/03/18 04/03/18 04/03/18 11:32 13:14 19:28 WBC RBC Hgb Hct MCHC RDW Seg Neuts % (Manual) Lymphocytes % (Manual) Seg Neutrophils # Man Lymphocytes # (Manual) POC ABG pH 7.475 H POC ABG pCO2 28.7 L Sodium Chloride Carbon Dioxide Creatinine Glucose POC Glucose Hemoglobin A1c Lactic Acid 3.60 H* 2.90 H* AST Albumin 04/03/18 04/03/18 04/04/18 21:53 22:51 00:58 WBC RBC Hgb Hct MCHC RDW Seg Neuts % (Manual) Lymphocytes % (Manual) Seg Neutrophils # Man Lymphocytes # (Manual) POC ABG pH POC ABG pCO2 Sodium Chloride Carbon Dioxide Creatinine Glucose POC Glucose Hemoglobin A1c 7.2 H Lactic Acid 2.80 H* 2.70 H* AST Albumin 04/04/18 04/04/18 04/04/18 04:07 04:07 05:17 WBC 11.2 H RBC 3.16 L Hgb 9.7 L Hct 29.5 L MCHC RDW Seg Neuts % (Manual) Lymphocytes % (Manual) 1.0 L Seg Neutrophils # Man Lymphocytes # (Manual) 0.1 L POC ABG pH POC ABG pCO2 Sodium 133 L Chloride 93.3 L Carbon Dioxide Creatinine 0.5 L Glucose 204 H POC Glucose 198 H Hemoglobin A1c Lactic Acid AST 42 H Albumin 2.5 L 04/04/18 04/04/18 04/04/18 11:30 16:17 22:47 WBC RBC Hgb Hct MCHC RDW Seg Neuts % (Manual) Lymphocytes % (Manual) Seg Neutrophils # Man Lymphocytes # (Manual) POC ABG pH POC ABG pCO2 Sodium Chloride Carbon Dioxide Creatinine Glucose POC Glucose 293 H 283 H 307 H Hemoglobin A1c Lactic Acid AST Albumin 04/05/18 04/05/18 04/05/18 06:53 06:53 07:09 WBC RBC 3.10 L Hgb 9.7 L Hct 29.1 L MCHC RDW 15.3 H Seg Neuts % (Manual) Lymphocytes % (Manual) Seg Neutrophils # Man Lymphocytes # (Manual) POC ABG pH POC ABG pCO2 Sodium 136 L Chloride 97.0 L Carbon Dioxide Creatinine 0.6 L Glucose 297 H POC Glucose 281 H Hemoglobin A1c Lactic Acid AST Albumin
--- NOTE | 2018-04-05 13:25 | Progress Note ---
Assessment and Plan Assessment and plan: Mr. Caceres is a 57 yo man with a history of tonsil cancer, glaucoma, hypertension, type 2 dm and Lung cancer diagnosis last year now with metastatic disease to the right hip and right rib currently on chemotherapy per patient who presented with sob and cough. * pCXR showed bilateral upper lung infiltrates. 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 Curtis pending History Interval history: Patient was seen and examined. Follow-up on current diagnosis of sob and cough, improving. Overnight uneventful. Patient denies any chest pain, nausea/vomiting or severe headaches. Imaging, nursing note, chart, labs and old chart reviewed. Discussed with patient. Hospitalist Physical - Physical exam Narrative exam: GEN: ill appearing, thin frail, NAD, Awake, Alert, Orientated HEENT: NCAT, EOMI, PERRL, OP Clear NECK: supple, no adenopathy, no thyromegaly, no JVD CVS/HEART: RRR, normal S1S2, pulses present bilaterally CHEST/LUNGS: coarse bs bilaterally, Symmetrical chest expansion, good air entry bilaterally GI/Abdomen: soft, NTND, good bowel sounds, no guarding or rebound /Bladder: no suprapubic tenderness, no CVA or paraspinal tenderness EXT/Skin: no c/c/e, no obvious rash MSK: FROM x 4 Neuro: CN 2-12 grossly intact, no new focal deficits Psych: calm - Constitutional Vitals: Temp Pulse Resp BP Pulse Ox 97.3 F L 123 H 16 123/84 99 04/05/18 09:15 04/05/18 10:18 04/05/18 10:00 04/05/18 10:18 04/05/18 10:00 General appearance: Absent: mild distress Results - Labs CBC & Chem 7: 04/05/18 06:53 04/05/18 06:53 Labs: Laboratory Last Values WBC 10.0 K/mm3 (4.5-11.0) 04/05/18 06:53 RBC 3.10 M/mm3 (3.65-5.03) L 04/05/18 06:53 Hgb 9.7 gm/dl (11.8-15.2) L 04/05/18 06:53 Hct 29.1 % (35.5-45.6) L 04/05/18 06:53 MCV 94 fl (84-94) 04/05/18 06:53 MCH 31 pg (28-32) 04/05/18 06:53 MCHC 33 % (32-34) 04/05/18 06:53 RDW 15.3 % (13.2-15.2) H 04/05/18 06:53 Plt Count 399 K/mm3 (140-440) 04/05/18 06:53 Add Manual Diff Complete 04/04/18 04:07 Total Counted 100 04/04/18 04:07 Seg Neutrophils % Motor Tune Up Specialist 04/04/18 04:07 Seg Neuts % (Manual) 62.0 % (40.0-70.0) 04/04/18 04:07 Band Neutrophils % 36.0 % 04/04/18 04:07 Lymphocytes % (Manual) 1.0 % (13.4-35.0) L 04/04/18 04:07 Reactive Lymphs % (Man) 0 % 04/04/18 04:07 Monocytes % (Manual) 1.0 % (0.0-7.3) 04/04/18 04:07 Eosinophils % (Manual) 0 % (0.0-4.3) 04/04/18 04:07 Basophils % (Manual) 0 % (0.0-1.8) 04/04/18 04:07 Metamyelocytes % 0 % 04/04/18 04:07 Myelocytes % 0 % 04/04/18 04:07 Promyelocytes % 0 % 04/04/18 04:07 Blast Cells % 0 % 04/04/18 04:07 Nucleated RBC % Not Reportable 04/04/18 04:07 Seg Neutrophils # Man 6.9 K/mm3 (1.8-7.7) 04/04/18 04:07 Band Neutrophils # 4.0 K/mm3 04/04/18 04:07 Lymphocytes # (Manual) 0.1 K/mm3 (1.2-5.4) L 04/04/18 04:07 Abs React Lymphs (Man) 0.0 K/mm3 04/04/18 04:07 Monocytes # (Manual) 0.1 K/mm3 (0.0-0.8) 04/04/18 04:07 Eosinophils # (Manual) 0.0 K/mm3 (0.0-0.4) 04/04/18 04:07 Basophils # (Manual) 0.0 K/mm3 (0.0-0.1) 04/04/18 04:07 Metamyelocytes # 0.0 K/mm3 04/04/18 04:07 Myelocytes # 0.0 K/mm3 04/04/18 04:07 Promyelocytes # 0.0 K/mm3 04/04/18 04:07 Blast Cells # 0.0 K/mm3 04/04/18 04:07 WBC Morphology Not Reportable 04/04/18 04:07 Hypersegmented Neuts Not Reportable 04/04/18 04:07 Hyposegmented Neuts Not Reportable 04/04/18 04:07 Hypogranular Neuts Not Reportable 04/04/18 04:07 Smudge Cells Not Reportable 04/04/18 04:07 Toxic Granulation Not Reportable 04/04/18 04:07 Toxic Vacuolation Not Reportable 04/04/18 04:07 Dohle Bodies Not Reportable 04/04/18 04:07 Pelger-Huet Anomaly Not Reportable 04/04/18 04:07 Marlene Rods Not Reportable 04/04/18 04:07 Platelet Estimate Consistent w auto 04/04/18 04:07 Clumped Platelets Not Reportable 04/04/18 04:07 Plt Clumps, EDTA Not Reportable 04/04/18 04:07 Large Platelets Not Reportable 04/04/18 04:07 Giant Platelets Not Reportable 04/04/18 04:07 Platelet Satelliting Not Reportable 04/04/18 04:07 Plt Morphology Comment Not Reportable 04/04/18 04:07 RBC Morphology Not Reportable 04/04/18 04:07 Dimorphic RBCs Not Reportable 04/04/18 04:07 Polychromasia Not Reportable 04/04/18 04:07 Hypochromasia Not Reportable 04/04/18 04:07 Poikilocytosis Not Reportable 04/04/18 04:07 Anisocytosis 1+ 04/04/18 04:07 Microcytosis Not Reportable 04/04/18 04:07 Macrocytosis Not Reportable 04/04/18 04:07 Spherocytes Not Reportable 04/04/18 04:07 Pappenheimer Bodies Not Reportable 04/04/18 04:07 Sickle Cells Not Reportable 04/04/18 04:07 Target Cells Not Reportable 04/04/18 04:07 Tear Drop Cells Not Reportable 04/04/18 04:07 Ovalocytes Not Reportable 04/04/18 04:07 Helmet Cells Not Reportable 04/04/18 04:07 [place] Bodies Not Reportable 04/04/18 04:07 Wendell Rings Not Reportable 04/04/18 04:07 Ariadna Cells Not Reportable 04/04/18 04:07 Bite Cells Not Reportable 04/04/18 04:07 Crenated Cell Not Reportable 04/04/18 04:07 Elliptocytes Not Reportable 04/04/18 04:07 Acanthocytes (Spur) Not Reportable 04/04/18 04:07 Rouleaux Not Reportable 04/04/18 04:07 Hemoglobin C Crystals Not Reportable 04/04/18 04:07 Schistocytes Not Reportable 04/04/18 04:07 Malaria parasites Not Reportable 04/04/18 04:07 Yaniv Bodies Not Reportable 04/04/18 04:07 Hem Pathologist Commnt No 04/04/18 04:07 POC ABG pH 7.475 (7.35-7.45) H 04/03/18 11:32 POC ABG pCO2 28.7 (35-45) L 04/03/18 11:32 POC ABG pO2 87 (80-105) 04/03/18 11:32 POC ABG HCO3 21.1 04/03/18 11:32 POC ABG Total CO2 22 04/03/18 11:32 POC ABG O2 Sat 97 07/21/18 11:32 POC ABG Base Excess -2 04/03/18 11:32 FiO2 100 % 04/03/18 11:32 Sodium 136 mmol/L (137-145) L 04/05/18 06:53 Potassium 3.6 mmol/L (3.6-5.0) 04/05/18 06:53 Chloride 97.0 mmol/L (98-107) L 04/05/18 06:53 Carbon Dioxide 22 mmol/L (22-30) 04/05/18 06:53 Anion Gap 21 mmol/L 04/05/18 06:53 BUN 19 mg/dL (9-20) 04/05/18 06:53 Creatinine 0.6 mg/dL (0.8-1.5) L 04/05/18 06:53 Estimated GFR > 60 ml/min 04/05/18 06:53 BUN/Creatinine Ratio 32 % 04/05/18 06:53 Glucose 297 mg/dL (75-100) H 04/05/18 06:53 POC Glucose 334 (70-105) H 04/05/18 12:08 Hemoglobin A1c 7.2 % (4-6) H 04/03/18 21:53 Osmolality 281 Mosm/kg 04/03/18 23:33 Lactic Acid 1.60 mmol/L (0.7-2.0) 04/04/18 04:07 Calcium 9.5 mg/dL (8.4-10.2) 04/05/18 06:53 Total Bilirubin 0.50 mg/dL (0.1-1.2) 04/04/18 04:07 AST 42 units/L (5-40) H 04/04/18 04:07 ALT 47 units/L (7-56) 04/04/18 04:07 Alkaline Phosphatase 73 units/L (35-129) 04/04/18 04:07 NT-Pro-B Natriuret Pep 388.8 pg/mL (0-900) 04/03/18 11:06 Total Protein 6.3 g/dL (6.3-8.2) 04/04/18 04:07 Albumin 2.5 g/dL (3.9-5) L 04/04/18 04:07 Albumin/Globulin Ratio 0.7 % 04/04/18 04:07
[2018-04-05] MEDS ORDERED: IMODIUM PO ONE (15:58)
--- NOTE | 2018-04-05 20:21 | Progress Note ---
Assessment and Plan - Patient Problems (1) Acute respiratory failure with hypoxia Current Visit: Yes Status: Acute Plan to address problem: Follow pulm. (2) Bilateral pneumonia Current Visit: Yes Status: Acute Plan to address problem: Continue with current ABX/oxygen.Ct to r/o post obst pneumonitis. Subjective Date of service: 04/05/18 Interval history: Patient seen, resting in bed, labs reviewed. Objective - Constitutional Vitals: Vital Signs - 12hr 04/05/18 04/05/18 04/05/18 08:30 08:32 08:50 Temperature Pulse Rate Pulse Rate [ 104 H 120 H Anterior Bilateral Throughout] Pulse Rate [ Anterior Bilateral] Pulse Rate [ From Monitor] Respiratory Rate Respiratory 20 20 Rate [Anterior Bilateral Throughout] Respiratory Rate [Anterior Bilateral] Blood Pressure O2 Sat by Pulse 94 Oximetry 04/05/18 04/05/18 04/05/18 09:15 10:00 10:18 Temperature 97.3 F L Pulse Rate 123 H 123 H Pulse Rate [ Anterior Bilateral Throughout] Pulse Rate [ Anterior Bilateral] Pulse Rate [ 123 H From Monitor] Respiratory 16 16 Rate Respiratory Rate [Anterior Bilateral Throughout] Respiratory Rate [Anterior Bilateral] Blood Pressure 123/84 123/84 O2 Sat by Pulse 99 99 Oximetry 04/05/18 04/05/18 04/05/18 16:32 16:56 17:07 Temperature Pulse Rate 102 H Pulse Rate [ Anterior Bilateral Throughout] Pulse Rate [ 103 H 114 H Anterior Bilateral] Pulse Rate [ From Monitor] Respiratory Rate Respiratory Rate [Anterior Bilateral Throughout] Respiratory 20 20 Rate [Anterior Bilateral] Blood Pressure 132/84 O2 Sat by Pulse 100 Oximetry 04/05/18 19:39 Temperature 97.9 F Pulse Rate 100 H Pulse Rate [ Anterior Bilateral Throughout] Pulse Rate [ Anterior Bilateral] Pulse Rate [ From Monitor] Respiratory 18 Rate Respiratory Rate [Anterior Bilateral Throughout] Respiratory Rate [Anterior Bilateral] Blood Pressure 113/73 O2 Sat by Pulse 98 Oximetry General appearance: Present: no acute distress, well-nourished - EENT Eyes: PERRL, EOM intact ENT: hearing intact, clear oral mucosa Ears: bilateral: normal - Neck Neck: supple, normal ROM - Respiratory Respiratory effort: normal Respiratory: bilateral: CTA - Breasts Breasts: deferred - Cardiovascular Rhythm: regular Heart Sounds: Present: S1 & S2. Absent: gallop, rub Extremities: pulses intact, No edema, normal color, Full ROM - Gastrointestinal General gastrointestinal: Present: soft, non-tender, non-distended, normal bowel sounds Rectal Exam: deferred - Genitourinary Male genitourinary: deferred - Integumentary Integumentary: clear, warm, dry - Musculoskeletal Musculoskeletal: 1, strength equal bilaterally - Neurologic Neurologic: moves all extremities - Psychiatric Psychiatric: memory intact, appropriate mood/affect, intact judgment & insight - Labs CBC & Chem 7: 04/05/18 06:53 04/05/18 06:53 Labs: Abnormal lab results 04/04/18 04/05/18 04/05/18 Range/Units 22:47 06:53 06:53 RBC 3.10 L (3.65-5.03) M/mm3 Hgb 9.7 L (11.8-15.2) gm/dl Hct 29.1 L (35.5-45.6) % RDW 15.3 H (13.2-15.2) % Sodium 136 L (137-145) mmol/L Chloride 97.0 L (98-107) mmol/L Creatinine 0.6 L (0.8-1.5) mg/dL Glucose 297 H (75-100) mg/dL POC Glucose 307 H (70-105) 04/05/18 04/05/18 04/05/18 Range/Units 07:09 12:08 16:40 RBC (3.65-5.03) M/mm3 Hgb (11.8-15.2) gm/dl Hct (35.5-45.6) % RDW (13.2-15.2) % Sodium (137-145) mmol/L Chloride (98-107) mmol/L Creatinine (0.8-1.5) mg/dL Glucose (75-100) mg/dL POC Glucose 281 H 334 H 282 H (70-105)
--- NOTE | 2018-04-05 21:37 | Cat Scan Report ---
FINAL REPORT PROCEDURE: CT ANGIO CHEST TECHNIQUE: Computerized axial tomographic angiography of the chest and pulmonary arteries was performed after the IV injection of iodinated nonionic contrast. The image data was postprocessed using maximum intensity projection (MIP) and 2-dimensional multiplanar reformatted (MPR) techniques. The examination is specifically tailored to the evaluation of the pulmonary arteries per clinical request. HISTORY: Short of breath 786.09, chest pain 786.50, Chest Pain, hemoptysis, Hypoxemia COMPARISON: No prior studies are available for comparison. FINDINGS: Heart and pericardium: The heart size is normal. There is prominent pericardial fluid.. Thoracic aorta: There is no thoracic aortic aneurysm or dissection.. Pulmonary vasculature: Normal. No pulmonary emboli. Lymph nodes: There are prominent mediastinal and hilar lymph nodes.. Lungs: There is a spiculated right paratracheal mass measuring 4.5 centimeters. There is a cavitating mass at the right lung base measuring 5 centimeters. These could be inflammatory but malignancy cannot be excluded. There are infiltrates at the right lung base.. Pleural space: There is a small right pleural effusion. There is no pneumothorax.. Musculoskeletal structures: There is a 1 centimeter sclerotic lesion in T7 which could be a metastatic lesion. There are no pathological fractures.. Upper abdominal structures: No significant abnormality. IMPRESSION: There is no pulmonary embolism. The heart size is normal. There is prominent pericardial fluid.. There is no thoracic aortic aneurysm or dissection.. There are prominent mediastinal and hilar lymph nodes.. There is a spiculated right paratracheal mass measuring 4.5 centimeters. There is a cavitating mass at the right lung base measuring 5 centimeters. These could be inflammatory but malignancy cannot be excluded. There are infiltrates at the right lung base.. There is a small right pleural effusion. There is no pneumothorax.. There is a 1 centimeter sclerotic lesion in T7 which could be a metastatic lesion. There are no pathological fractures..
[2018-04-05] MEDS: PEPCID PO SCH (21:46)
[2018-04-05] MEDS: LATANOPROST 0.005% OU SCH (23:00)
--- NOTE | 2018-04-05 23:53 | Consultation ---
PULMONARY CONSULT NOTE CONSULTING PHYSICIAN: Meenu Traore MD REASON FOR CONSULTATION: Lung cancer. CHIEF COMPLAINT AND HISTORY OF PRESENT ILLNESS: As follows, the patient is a 57-year-old male with past medical history significant for a diagnosis of lung cancer that he seems to suggest was made in the last couple of years. He also admits to a history of head and neck cancer that was treated about 8-9 years ago and that resolved completely. He stated that when a new spot was found in his lungs, he had a biopsy done. He was told that he had a cancer in his lungs, but also that the cancer had spread to his bone marrow is what he told me. Whatever the case, he states he has been following up at [place]. I believe he mentions a right either lobectomy or segmentectomy done at [facility]. He denies being on any chemotherapy of significance for many years. Showed up in the Emergency Room complaining of sudden onset of severe dyspnea, chest pain, pleuritic in nature, improved with rest and improved in the upright position. He denied any gross or streaky hemoptysis but notes that his sputum has been a little bit pink tinge at times over the past few days. He denies any recent long distance travel. He denied any real new or leg pain or swelling, either unilaterally or bilaterally. He denies a history of venous thromboembolic phenomenon. He denies any history of any other bleeding diathesis. He has a 10+ pack year remote tobacco smoking history. In the Emergency Room, he was evaluated, radio imaging was abnormal. He was diagnosed with an acute hypoxemic respiratory failure, which is new that is the hypoxemia as well as bilateral pneumonia. We are asked to assist with management. When I stopped by to see him, he was sitting up on the side of bed, still short of breath. He was on about 3 liters nasal cannula at that time. He denied any recent nausea, vomiting, or overt aspiration. He denied any new onset focal weakness. Denies new onset seizures. Denies any suggestion of any metastatic lesions of acute nature. This really is as much of the history of presentation as I have. PAST MEDICAL HISTORY: 1. Again, significant for a diagnosis of head and neck cancer. 2. Lung cancer. 3. History of diabetes. 4. History of hypertension. 5. History of tobacco abuse. PAST SURGICAL HISTORY: He seems to suggest some sort of resection in the right lung. MEDICATIONS: He was on at the time I stopped by to see him were reviewed. Pertinent medications include the following: DuoNeb treatments nebulized q.i.d., Tessalon Perles 100 mg p.o. q. 8 hours, Pepcid 20 mg p.o. b.i.d., insulin via sliding scale, latanoprost eye drops to affected eye at bedtime, Cozaar 50 mg p.o. daily, p.r.n. meclizine. He is on metformin 1 gram p.o. b.i.d., Solu-Medrol 40 mg IV q. 8 hours, Zofran 4 mg IV q 8 hours p.r.n. nausea and vomiting, morphine sulfate 2 mg IV q. 4 hours p.r.n. moderate pain, Zosyn 4.5 grams IV q. 8 hours. ALLERGIES: No known drug allergies. DIET: Thin gentleman. Denies overt changes in his weight in the preceding few weeks to months. FAMILY AND SOCIAL HISTORY: Apparently, he lives in the community. He has a 10+ pack year remote tobacco smoking history. Denies current alcohol, tobacco, or illicit drug use or abuse. Family history is negative for venous thromboembolic events. REVIEW OF SYSTEMS: A complete 13-system review of systems is obtained, amongst other things. He denied any gross hematochezia or melena. Denied gross hematuria. He denied any hematemesis. He denied any palpitations. He denied heat or cold intolerance. He denied polydipsia or polyuria. Complete 13-system review of systems is obtained, pertinent positives and/or negatives as in the body of history above, otherwise they are noncontributory and he denies any significant fevers or chills. PHYSICAL EXAMINATION: VITAL SIGNS: On examination, at presentation in the Emergency Room and really since he was afebrile, temperature 98.4, at presentation 98.4 degrees Fahrenheit, pulse 131, respiratory rate 28, blood pressure 133/86, oxygen sats were 84%. At the time I saw him, his O2 sats were in the mid 90s to high 90s on 3 liters nasal cannula. GENERAL: He is a thin, elderly looking male, normocephalic, atraumatic, talking to me in occasional interrupted sentences, in mild respiratory distress. HEENT: Examination of the head, eyes, ears, nose and throat showed he is anicteric. No conjunctival erythema. Oropharynx is a Mallampati #2 oropharynx. Oropharynx is moist. NECK: No gross jugular venous distention. He has a thick skin to the right anterior triangle of the neck area as well as some fullness there that he states is post-radiation change. LUNGS: Auscultation of both lung godinez significant for diminished bilateral breath sounds and right lower lobe inspiratory rales. No active wheezing. HEART: Heart sounds 1 and 2 are heard, regular rate and rhythm at the time of my evaluation. No rubs or murmurs. ABDOMEN: Soft, flat. Bowel sounds are positive, nontender. No palpable hepatosplenomegaly. EXTREMITIES: Are without overt digital clubbing or cyanosis and no significant pedal edema. Dorsalis pedis pulses are palpable bilaterally. The skin is of poor turgor in particular in the areas of post-radiation damage; however, no overt cellulitis or rash. NEUROLOGIC: Pupils are equal, round, about 3-4 mm, reactive to light. Extraocular muscle movements are intact. He moves all 4 extremities spontaneously. Power is normal in all his extremities. LABORATORY AND DIAGNOSTIC DATA: From my review are as follows: Admission white cell count 16,900, hemoglobin 10.8, hematocrit 30.6, platelet count was 384. Arterial blood gas at presentation showed a pH of 7.48, pCO2 of 29, pO2 of 87 that was on 100% nonrebreather at that time. Serum sodium 129, potassium 4.4, chloride 88, bicarbonate 20, BUN 11, creatinine 0.5, and glucose 154. Lactic acid level was 3.4 at presentation. Albumin 3.0, otherwise liver function tests within normal limits. BNP was within normal limits. His serum lactic acid levels have since normalized. White count is down to 10. His sugars are running high. Blood cultures no growth after 48 hours. I have reviewed his chest x-ray as well as the CT scan of his chest. Unfortunately, it is a noncontrast CT scan in particular. There are changes of some evidence of postsurgical change. He has a right lower lobe predominant infiltrate, left costophrenic angle actually looks clear. There is some volume loss in the right lower lobe region. I do not see any overt pleural effusions that is on the chest x-ray. The CT scan suggests small to moderate layering pleural effusion on the right. There is some right hilar fullness/adenopathy. He has some mediastinal adenopathy. The long windows reveal right upper lobe emphysematous changes as well as changes consistent with traction bronchiectasis, probably some post-radiation damage, right upper lobe posterior cavitary lesion with suggestion of an air fluid level in it and significant right lower lobe areas of air bronchograms and consolidation. He has also some peripheral lesions in the left upper lobe, some of them appeared to be at the tip of blood vessels. No gross pneumothorax, no gross bony fracture. ASSESSMENT AND PLAN: 1. Acute hypoxemic respiratory failure, now on supplemental oxygen. 2. Pneumonia, right lower lobe appears to be community-acquired. 3. History of lung cancer, metastatic, according to the patient. 4. Leukocytosis. 5. Anemia that is normocytic. 6. Hyponatremia, mild. 7. Diabetes, poorly controlled at this point. 8. History of hypertension. 9. Remote tobacco abuse history. PLAN: The sudden nature of his symptoms, the pleuritic nature of the symptoms, the presence of the malignancy all give me at least an intermediate [id number] for possible venous thromboembolic event in this gentleman. I will go ahead and order a CT angiogram of the chest and make sure we are not also dealing with venous thromboembolic phenomenon. Further [facility] records will be of benefit; however, the patient states that he just wants to stabilize himself here and transfer back to [facility]. I will review the CT angiogram and make decisions as to whether further testing will be necessary. If that is negative, testing to include lower extremity Dopplers. For now, we should continue empiric antibiotic therapy. I do feel that we probably can deescalate antibiotics to cover community-acquired pneumonia, either Rocephin and Zithromax or switch over to Levaquin. I will have him send some sputum for Gram stain, cultures and sensitivities. Oxygen will be weaned to keep sats greater than or equal to about 90-92%, home oxygen evaluation will be done if he is still oxygen dependent at the time of discharge. He is appropriately on gastrointestinal prophylaxis. I will put him on deep venous thrombosis prophylaxis pending the evaluation of the CT angiogram. We will continue bronchodilators. Continued tobacco abstinence has been counseled. Flu and pneumonia vaccination will be addressed per protocol. Thank you very much for the consult, Dr. Traore. We will follow along. We will make further recommendations as picture progresses/becomes clearer. JOB# [id number] REMA/NTS
[2018-04-06] MEDS: TESSALON PERLES PO SCH ×3 (06:40→22:03)
[2018-04-06] MEDS: ZOSYN/NS 4.5GM/100ML 4.5 GM/100 ML VIAL IV SCH ×3 (06:41→22:04)
[2018-04-06] MEDS: HumaLOG SUB-Q SCH ×4 (07:30→22:04)
[2018-04-06 08:14] LABS: Hematocrit 29.9 % (35.5-45.6); Hemoglobin 9.8 gm/dl (11.8-15.2); Mean Corpuscular HGB Conc 33 % (32-34); Mean Corpuscular Hemoglobin 31 pg (28-32); Mean Corpuscular Volume 95 fl (84-94); Platelet Count 465 K/mm3 (140-440); Red Blood Count 3.15 M/mm3 (3.65-5.03); Red Cell Distribution Width 15.6 % (13.2-15.2)
[2018-04-06] MEDS: GLUCOPHAGE PO SCH ×2 (08:14→18:54)
[2018-04-06 09:12] LABS: BUN/Creatinine Ratio 28; Blood Urea Nitrogen 17 mg/dL (9-20); Calcium 9.4 mg/dL (8.4-10.2); Hemolysis Index 6
--- NOTE | 2018-04-06 10:07 | Cat Scan Report ---
CT CHEST WITHOUT CONTRAST: HISTORY: Restaging of cancer. COMPARISON: none. TECHNIQUE: Helical CT in 1.25mm intervals without IV contrast. Sagittal and coronal reformatted images. FINDINGS: Thyroid gland: Not included. Tracheobronchial tree: Unremarkable. Esophagus: Normal. Heart: Normal. Pericardium: A small pericardial effusion is identified. No obvious pericardial nodularity. Mediastinum: Borderline to mildly enlarged right paratracheal lymph nodes, right hilar lymph nodes and AP window lymph nodes are identified. These could be related to malignancy or reactive. Lung [place]: There is a spiculated density in the right upper lobe measuring 5.6 x 1.5 cm in axial plane. This appears to represent scarring or surgical change. Radiation changes could be considered. An underlying mass is difficult to exclude. There is a large spiculated cavitating mass in the lateral right middle lobe measuring 5.9 x 5.9 cm in axial dimensions. This contains a fluid level. This could represent a necrotic mass or an inflammatory process such as fungal infection. There is patchy infiltrate throughout the right lower lobe suggesting pneumonia. There are small spiculated densities in the superior lingula measuring up to 1.5 cm of uncertain origin. These may represent focal areas of scarring. Pleural Spaces: Trace left pleural effusion. Small layering right pleural effusion. Musculoskeletal: Osteopenia and degenerative changes. 1 cm well-defined sclerotic lesion in T7 is most consistent with a vertebral body hemangioma. IMPRESSION: 5.9 x 5.9 cm cavitating masslike lesion in the right middle lobe concerning for malignancy or possibly an inflammatory process. Linear spiculated density in the right upper lobe which probably represents scarring or radiation changes. Suspicious right paratracheal, right hilar and AP window lymph nodes. Right lower lobe infiltrate. Trace left pleural effusion. Small right pleural effusion. Small pericardial effusion.
[2018-04-06] MEDS: DUONEB *Not for PRN Use IH SCH ×4 (10:14→21:08)
[2018-04-06] MEDS: COZAAR PO SCH (10:15)
[2018-04-06] MEDS: SODIUM CHLORIDE FLUSH SYRINGE 10 ML IV SCH ×2 (10:16→22:09)
[2018-04-06] MEDS: PEPCID PO SCH ×2 (10:16→22:03)
--- NOTE | 2018-04-06 10:58 | Cat Scan Report ---
CT ABDOMEN PELVIS WITHOUT CONTRAST: HISTORY: Restaging of cancer. COMPARISON: none. TECHNIQUE: Helical CT in 1.25mm intervals without IV contrast. Sagittal and coronal reconstructions. FINDINGS: Liver: Within normal limits. Biliary system: Cholecystectomy changes are suspected. No biliary dilatation. Pancreas: Normal. Spleen: Normal. Kidneys/ureters/bladder: The kidneys are normal size and position. 2 cysts measuring up to 2 cm are identified in the mid left kidney. No evidence for obstruction, nephrolithiasis or obvious mass. The ureters and bladder are unremarkable. The prostate gland is normal size. Adrenal glands: Normal. Aorta: Mild distal calcifications. No aneurysm. Intestines: Limited evaluation of the GI system without IV and oral contrast. There is no obvious mass, focal inflammation or obstruction. Appendix: Not confidently identified, correlate with history. Pelvic viscera: Normal. Ascites: None. Adenopathy: None. Musculoskeletal: Moderate lumbar spondylosis. There appears to be a suspicious lytic lesion in in the right iliac bone anteriorly measuring up to 4.7 x 1.4 cm. This has the appearance of a metastatic lesion or bone destruction. This process extends to a small portion of the right iliac is muscle as well. No additional suspicious bony lesions are appreciated. IMPRESSION: No obvious visceral mass or adenopathy. No acute inflammatory changes. Suspicious right iliac bone lesion as described. Left renal cysts.
--- NOTE | 2018-04-06 12:02 | Progress Note ---
Assessment and Plan Assessment and plan: Mr. Caceres is a 57 yo man with a history of tonsil cancer, glaucoma, hypertension, type 2 dm and Lung cancer diagnosis last year now with metastatic disease to the right hip and right rib currently on chemotherapy per patient who presented with sob and cough. * pCXR showed bilateral upper lung infiltrates. * CTA chest IMPRESSION: There is no pulmonary embolism. The heart size is normal. There is prominent pericardial fluid.. There is no thoracic aortic aneurysm or dissection.. There are prominent mediastinal and hilar lymph nodes.. There is a spiculated right paratracheal mass measuring 4.5 centimeters. There is a cavitating mass at the right lung base measuring 5 centimeters. These could be inflammatory but malignancy cannot be excluded. There are infiltrates at the right lung base.. There is a small right pleural effusion. There is no pneumothorax.. There is a 1 centimeter sclerotic lesion in T7 which could be a metastatic lesion. There are no pathological fractures.. * CT abd/pelvis wo contrast IMPRESSION: No obvious visceral mass or adenopathy. No acute inflammatory changes. Suspicious right iliac bone lesion as described. Left renal cysts. Sepsis from Bilateral Aspiration pneumonia poa improved WBC from 16.9 to 11.2: continue iv zosyn,add antitussive, speech evaluation Acute respiratory failure with hypoxia: Continue oxygen as needed Duonebs IV Solu-Medrol and IV Zosyn Hyponatremia believed to be SIADH, resolved hyponatremia Severe malnutrition, albumin 2.5: consult [employer] Machine Helper, add Ensure supplementation Uncontrolled type 2 DM with hyperglycemia, a1c 7.2: continue metformin, add ssi (pt has been refusing insulin), ada diet Anemia, appears chronic, steady: cbc in am Stage 4 Lung cancer with bone mets: Patient follows with [facility], Dr Curtis consulted HTN (hypertension): Continue antihypertensives DVT prophylaxis: Patient initiated on Lovenox 40 mg subcutaneous daily Today patient is down to 4L O2, continue weaning attempts. Anticipate d/c in 2 days or wean o2 requirement improves History Interval history: Patient was seen and examined. Follow-up on current diagnosis of sob and cough, improving. Overnight uneventful. Patient denies any chest pain, nausea/vomiting or severe headaches. Imaging, nursing note, chart, labs and old chart reviewed. Discussed with patient. Hospitalist Physical - Physical exam Narrative exam: GEN: ill appearing, thin frail, NAD, Awake, Alert, Orientated HEENT: NCAT, EOMI, PERRL, OP Clear NECK: supple, no adenopathy, no thyromegaly, no JVD CVS/HEART: RRR, normal S1S2, pulses present bilaterally CHEST/LUNGS: coarse bs bilaterally, Symmetrical chest expansion, good air entry bilaterally GI/Abdomen: soft, NTND, good bowel sounds, no guarding or rebound /Bladder: no suprapubic tenderness, no CVA or paraspinal tenderness EXT/Skin: no c/c/e, no obvious rash MSK: FROM x 4 Neuro: CN 2-12 grossly intact, no new focal deficits Psych: calm - Constitutional Vitals: Temp Pulse Resp BP Pulse Ox 98.0 F 96 H 18 144/90 97 04/06/18 07:24 04/06/18 10:34 04/06/18 10:34 04/06/18 07:24 04/06/18 10:00 General appearance: Present: no acute distress, well-nourished Results - Labs CBC & Chem 7: 04/06/18 07:30 04/06/18 07:30 Labs: Laboratory Last Values WBC 8.5 K/mm3 (4.5-11.0) 04/06/18 07:30 RBC 3.15 M/mm3 (3.65-5.03) L 04/06/18 07:30 Hgb 9.8 gm/dl (11.8-15.2) L 04/06/18 07:30 Hct 29.9 % (35.5-45.6) L 04/06/18 07:30 MCV 95 fl (84-94) H 04/06/18 07:30 MCH 31 pg (28-32) 04/06/18 07:30 MCHC 33 % (32-34) 04/06/18 07:30 RDW 15.6 % (13.2-15.2) H 04/06/18 07:30 Plt Count 465 K/mm3 (140-440) H 04/06/18 07:30 Add Manual Diff Complete 04/04/18 04:07 Total Counted 100 04/04/18 04:07 Seg Neutrophils % Toxicology Teacher 04/04/18 04:07 Seg Neuts % (Manual) 62.0 % (40.0-70.0) 04/04/18 04:07 Band Neutrophils % 36.0 % 04/04/18 04:07 Lymphocytes % (Manual) 1.0 % (13.4-35.0) L 04/04/18 04:07 Reactive Lymphs % (Man) 0 % 04/04/18 04:07 Monocytes % (Manual) 1.0 % (0.0-7.3) 04/04/18 04:07 Eosinophils % (Manual) 0 % (0.0-4.3) 04/04/18 04:07 Basophils % (Manual) 0 % (0.0-1.8) 04/04/18 04:07 Metamyelocytes % 0 % 04/04/18 04:07 Myelocytes % 0 % 04/04/18 04:07 Promyelocytes % 0 % 04/04/18 04:07 Blast Cells % 0 % 04/04/18 04:07 Nucleated RBC % Not Reportable 04/04/18 04:07 Seg Neutrophils # Man 6.9 K/mm3 (1.8-7.7) 04/04/18 04:07 Band Neutrophils # 4.0 K/mm3 04/04/18 04:07 Lymphocytes # (Manual) 0.1 K/mm3 (1.2-5.4) L 04/04/18 04:07 Abs React Lymphs (Man) 0.0 K/mm3 04/04/18 04:07 Monocytes # (Manual) 0.1 K/mm3 (0.0-0.8) 04/04/18 04:07 Eosinophils # (Manual) 0.0 K/mm3 (0.0-0.4) 04/04/18 04:07 Basophils # (Manual) 0.0 K/mm3 (0.0-0.1) 04/04/18 04:07 Metamyelocytes # 0.0 K/mm3 04/04/18 04:07 Myelocytes # 0.0 K/mm3 04/04/18 04:07 Promyelocytes # 0.0 K/mm3 04/04/18 04:07 Blast Cells # 0.0 K/mm3 04/04/18 04:07 WBC Morphology Not Reportable 04/04/18 04:07 Hypersegmented Neuts Not Reportable 04/04/18 04:07 Hyposegmented Neuts Not Reportable 04/04/18 04:07 Hypogranular Neuts Not Reportable 04/04/18 04:07 Smudge Cells Not Reportable 04/04/18 04:07 Toxic Granulation Not Reportable 04/04/18 04:07 Toxic Vacuolation Not Reportable 04/04/18 04:07 Dohle Bodies Not Reportable 04/04/18 04:07 Pelger-Huet Anomaly Not Reportable 04/04/18 04:07 Marlene Rods Not Reportable 04/04/18 04:07 Platelet Estimate Consistent w auto 04/04/18 04:07 Clumped Platelets Not Reportable 04/04/18 04:07 Plt Clumps, EDTA Not Reportable 04/04/18 04:07 Large Platelets Not Reportable 04/04/18 04:07 Giant Platelets Not Reportable 04/04/18 04:07 Platelet Satelliting Not Reportable 04/04/18 04:07 Plt Morphology Comment Not Reportable 04/04/18 04:07 RBC Morphology Not Reportable 04/04/18 04:07 Dimorphic RBCs Not Reportable 04/04/18 04:07 Polychromasia Not Reportable 04/04/18 04:07 Hypochromasia Not Reportable 04/04/18 04:07 Poikilocytosis Not Reportable 04/04/18 04:07 Anisocytosis 1+ 04/04/18 04:07 Microcytosis Not Reportable 04/04/18 04:07 Macrocytosis Not Reportable 04/04/18 04:07 Spherocytes Not Reportable 04/04/18 04:07 Pappenheimer Bodies Not Reportable 04/04/18 04:07 Sickle Cells Not Reportable 04/04/18 04:07 Target Cells Not Reportable 04/04/18 04:07 Tear Drop Cells Not Reportable 04/04/18 04:07 Ovalocytes Not Reportable 04/04/18 04:07 Helmet Cells Not Reportable 04/04/18 04:07 Browne-Klemme Bodies Not Reportable 04/04/18 04:07 [place] Rings Not Reportable 04/04/18 04:07 Ariadna Cells Not Reportable 04/04/18 04:07 Bite Cells Not Reportable 04/04/18 04:07 Crenated Cell Not Reportable 04/04/18 04:07 Elliptocytes Not Reportable 04/04/18 04:07 Acanthocytes (Spur) Not Reportable 04/04/18 04:07 Rouleaux Not Reportable 04/04/18 04:07 Hemoglobin C Crystals Not Reportable 04/04/18 04:07 Schistocytes Not Reportable 04/04/18 04:07 Malaria parasites Not Reportable 04/04/18 04:07 Yaniv Bodies Not Reportable 04/04/18 04:07 Hem Pathologist Commnt No 04/04/18 04:07 POC ABG pH 7.475 (7.35-7.45) H 04/03/18 11:32 POC ABG pCO2 28.7 (35-45) L 04/03/18 11:32 POC ABG pO2 87 (80-105) 04/03/18 11:32 POC ABG HCO3 21.1 04/03/18 11:32 POC ABG Total CO2 22 04/03/18 11:32 POC ABG O2 Sat 97 04/03/18 11:32 POC ABG Base Excess -2 04/03/18 11:32 FiO2 100 % 04/03/18 11:32 Sodium 140 mmol/L (137-145) 04/06/18 07:30 Potassium 4.0 mmol/L (3.6-5.0) 04/06/18 07:30 Chloride 100.7 mmol/L (98-107) 04/06/18 07:30 Carbon Dioxide 21 mmol/L (22-30) L 04/06/18 07:30 Anion Gap 22 mmol/L 04/06/18 07:30 BUN 17 mg/dL (9-20) 04/06/18 07:30 Creatinine 0.6 mg/dL (0.8-1.5) L 04/06/18 07:30 Estimated GFR > 60 ml/min 04/06/18 07:30 BUN/Creatinine Ratio 28 % 04/06/18 07:30 Glucose 273 mg/dL (75-100) H 04/06/18 07:30 POC Glucose 308 (70-105) H 04/06/18 05:13 Hemoglobin A1c 7.2 % (4-6) H 04/03/18 21:53 Osmolality 281 Mosm/kg 04/03/18 23:33 Lactic Acid 1.60 mmol/L (0.7-2.0) 04/04/18 04:07 Calcium 9.4 mg/dL (8.4-10.2) 04/06/18 07:30 Total Bilirubin 0.50 mg/dL (0.1-1.2) 04/04/18 04:07 AST 42 units/L (5-40) H 04/04/18 04:07 ALT 47 units/L (7-56) 04/04/18 04:07 Alkaline Phosphatase 73 units/L (35-129) 04/04/18 04:07 C-Reactive Protein 9.00 mg/dL (0.00-1.30) H 04/05/18 19:59 NT-Pro-B Natriuret Pep 388.8 pg/mL (0-900) 04/03/18 11:06 Total Protein 6.3 g/dL (6.3-8.2) 04/04/18 04:07 Albumin 2.5 g/dL (3.9-5) L 04/04/18 04:07 Albumin/Globulin Ratio 0.7 % 04/04/18 04:07
[2018-04-06] MEDS: NACL 0.9% 1000 ML 1,000 ML IV SCH (18:55)
--- NOTE | 2018-04-06 19:13 | Progress Note ---
Assessment and Plan - Patient Problems (1) Acute respiratory failure with hypoxia Current Visit: Yes Status: Acute Plan to address problem: Follow pulm. (2) Bilateral pneumonia Current Visit: Yes Status: Acute Plan to address problem: Continue with current ABX/oxygen.Ct to r/o post obst pneumonitis. (3) Anemia Current Visit: Yes Status: Acute Plan to address problem: continue to monitor labs. Subjective Date of service: 04/06/18 Interval history: Patient seen, resting in bed, labs reviewed. Patient seen, restin g in bed, labs reviewed, no new issues at this time. Objective - Constitutional Vitals: Vital Signs - 12hr 04/06/18 04/06/18 04/06/18 07:24 10:00 10:34 Temperature 98.0 F Pulse Rate 100 H Pulse Rate [ 96 H Anterior Bilateral Throughout] Pulse Rate [ 93 H Anterior Bilateral] Respiratory 20 Rate Respiratory 18 Rate [Anterior Bilateral Throughout] Respiratory 20 Rate [Anterior Bilateral] Blood Pressure 144/90 O2 Sat by Pulse 99 97 Oximetry 04/06/18 04/06/18 04/06/18 11:28 14:00 15:47 Temperature 98.5 F 97.9 F Pulse Rate 101 H 102 H Pulse Rate [ 97 H Anterior Bilateral Throughout] Pulse Rate [ 98 H Anterior Bilateral] Respiratory 18 18 Rate Respiratory 18 Rate [Anterior Bilateral Throughout] Respiratory 18 Rate [Anterior Bilateral] Blood Pressure 128/81 128/84 O2 Sat by Pulse 97 98 Oximetry General appearance: Present: mild distress - EENT Eyes: PERRL, EOM intact ENT: hearing intact, clear oral mucosa Ears: bilateral: normal - Neck Neck: supple, normal ROM - Respiratory Respiratory effort: normal Respiratory: bilateral: CTA - Breasts Breasts: deferred - Cardiovascular Rhythm: regular Heart Sounds: Present: S1 & S2. Absent: gallop, rub Extremities: pulses intact, No edema, normal color, Full ROM - Gastrointestinal General gastrointestinal: Present: soft, non-tender, non-distended, normal bowel sounds Rectal Exam: deferred - Genitourinary Male genitourinary: deferred - Integumentary Integumentary: clear, warm, dry - Musculoskeletal Musculoskeletal: 1, strength equal bilaterally - Neurologic Neurologic: moves all extremities - Psychiatric Psychiatric: memory intact, appropriate mood/affect, intact judgment & insight - Labs CBC & Chem 7: 04/06/18 07:30 04/06/18 07:30 Labs: Abnormal lab results 04/05/18 04/05/18 04/06/18 Range/Units 19:59 21:42 05:13 RBC (3.65-5.03) M/mm3 Hgb (11.8-15.2) gm/dl Hct (35.5-45.6) % MCV (84-94) fl RDW (13.2-15.2) % Plt Count (140-440) K/mm3 Carbon Dioxide (22-30) mmol/L Creatinine (0.8-1.5) mg/dL Glucose (75-100) mg/dL POC Glucose 257 H 308 H (70-105) C-Reactive Protein 9.00 H (0.00-1.30) mg/dL 04/06/18 04/06/18 04/06/18 Range/Units 07:30 07:30 11:36 RBC 3.15 L (3.65-5.03) M/mm3 Hgb 9.8 L (11.8-15.2) gm/dl Hct 29.9 L (35.5-45.6) % MCV 95 H (84-94) fl RDW 15.6 H (13.2-15.2) % Plt Count 465 H (140-440) K/mm3 Carbon Dioxide 21 L (22-30) mmol/L Creatinine 0.6 L (0.8-1.5) mg/dL Glucose 273 H (75-100) mg/dL POC Glucose 263 H (70-105) C-Reactive Protein (0.00-1.30) mg/dL 04/06/18 Range/Units 15:55 RBC (3.65-5.03) M/mm3 Hgb (11.8-15.2) gm/dl Hct (35.5-45.6) % MCV (84-94) fl RDW (13.2-15.2) % Plt Count (140-440) K/mm3 Carbon Dioxide (22-30) mmol/L Creatinine (0.8-1.5) mg/dL Glucose (75-100) mg/dL POC Glucose 284 H (70-105) C-Reactive Protein (0.00-1.30) mg/dL
--- NOTE | 2018-04-06 19:24 | Progress Note ---
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: Severe malnutrition Uncontrolled type 2 DM with hyperglycemia Anemia Stage 4 Lung cancer with bone mets HTN (hypertension) Subjective Date of service: 04/06/18 Objective Vital Signs - 12hr 04/06/18 04/06/18 04/06/18 07:24 10:00 10:34 Temperature 98.0 F Pulse Rate 100 H Pulse Rate [ 96 H Anterior Bilateral Throughout] Pulse Rate [ 93 H Anterior Bilateral] Respiratory 20 Rate Respiratory 18 Rate [Anterior Bilateral Throughout] Respiratory 20 Rate [Anterior Bilateral] Blood Pressure 144/90 O2 Sat by Pulse 99 97 Oximetry 04/06/18 04/06/18 04/06/18 11:28 14:00 15:47 Temperature 98.5 F 97.9 F Pulse Rate 101 H 102 H Pulse Rate [ 97 H Anterior Bilateral Throughout] Pulse Rate [ 98 H Anterior Bilateral] Respiratory 18 18 Rate Respiratory 18 Rate [Anterior Bilateral Throughout] Respiratory 18 Rate [Anterior Bilateral] Blood Pressure 128/81 128/84 O2 Sat by Pulse 97 98 Oximetry CBC and BMP: 04/06/18 07:30 04/06/18 07:30 ABG, PT/INR, D-dimer: ABG POC ABG pH 7.475 (7.35-7.45) H 04/03/18 11:32 POC ABG pCO2 28.7 (35-45) L 04/03/18 11:32 POC ABG pO2 87 (80-105) 04/03/18 11:32 POC ABG HCO3 21.1 04/03/18 11:32 POC ABG Total CO2 22 04/03/18 11:32 POC ABG O2 Sat 97 04/03/18 11:32 Abnormal lab findings: Abnormal Labs 04/03/18 04/03/18 04/03/18 11:06 11:06 11:06 WBC 16.9 H RBC 3.33 L Hgb 10.8 L Hct 30.6 L MCV MCHC 35 H RDW Plt Count Seg Neuts % (Manual) 94.0 H Lymphocytes % (Manual) 1.0 L Seg Neutrophils # Man 15.9 H Lymphocytes # (Manual) 0.2 L POC ABG pH POC ABG pCO2 Sodium 129 L Chloride 88.1 L Carbon Dioxide 20 L Creatinine 0.5 L Glucose 154 H POC Glucose Hemoglobin A1c Lactic Acid 3.40 H* AST C-Reactive Protein Albumin 3.0 L 04/03/18 04/03/18 04/03/18 11:32 13:14 19:28 WBC RBC Hgb Hct MCV MCHC RDW Plt Count Seg Neuts % (Manual) Lymphocytes % (Manual) Seg Neutrophils # Man Lymphocytes # (Manual) POC ABG pH 7.475 H POC ABG pCO2 28.7 L Sodium Chloride Carbon Dioxide Creatinine Glucose POC Glucose Hemoglobin A1c Lactic Acid 3.60 H* 2.90 H* AST C-Reactive Protein Albumin 04/03/18 04/03/18 04/04/18 21:53 22:51 00:58 WBC RBC Hgb Hct MCV MCHC RDW Plt Count Seg Neuts % (Manual) Lymphocytes % (Manual) Seg Neutrophils # Man Lymphocytes # (Manual) POC ABG pH POC ABG pCO2 Sodium Chloride Carbon Dioxide Creatinine Glucose POC Glucose Hemoglobin A1c 7.2 H Lactic Acid 2.80 H* 2.70 H* AST C-Reactive Protein Albumin 04/04/18 04/04/18 04/04/18 04:07 04:07 05:17 WBC 11.2 H RBC 3.16 L Hgb 9.7 L Hct 29.5 L MCV MCHC RDW Plt Count Seg Neuts % (Manual) Lymphocytes % (Manual) 1.0 L Seg Neutrophils # Man Lymphocytes # (Manual) 0.1 L POC ABG pH POC ABG pCO2 Sodium 133 L Chloride 93.3 L Carbon Dioxide Creatinine 0.5 L Glucose 204 H POC Glucose 198 H Hemoglobin A1c Lactic Acid AST 42 H C-Reactive Protein Albumin 2.5 L 04/04/18 04/04/18 04/04/18 11:30 16:17 22:47 WBC RBC Hgb Hct MCV MCHC RDW Plt Count Seg Neuts % (Manual) Lymphocytes % (Manual) Seg Neutrophils # Man Lymphocytes # (Manual) POC ABG pH POC ABG pCO2 Sodium Chloride Carbon Dioxide Creatinine Glucose POC Glucose 293 H 283 H 307 H Hemoglobin A1c Lactic Acid AST C-Reactive Protein Albumin 04/05/18 04/05/18 04/05/18 06:53 06:53 07:09 WBC RBC 3.10 L Hgb 9.7 L Hct 29.1 L MCV MCHC RDW 15.3 H Plt Count Seg Neuts % (Manual) Lymphocytes % (Manual) Seg Neutrophils # Man Lymphocytes # (Manual) POC ABG pH POC ABG pCO2 Sodium 136 L Chloride 97.0 L Carbon Dioxide Creatinine 0.6 L Glucose 297 H POC Glucose 281 H Hemoglobin A1c Lactic Acid AST C-Reactive Protein Albumin 04/05/18 04/05/18 04/05/18 12:08 16:40 19:59 WBC RBC Hgb Hct MCV MCHC RDW Plt Count Seg Neuts % (Manual) Lymphocytes % (Manual) Seg Neutrophils # Man Lymphocytes # (Manual) POC ABG pH POC ABG pCO2 Sodium Chloride Carbon Dioxide Creatinine Glucose POC Glucose 334 H 282 H Hemoglobin A1c Lactic Acid AST C-Reactive Protein 9.00 H Albumin 04/05/18 04/06/18 04/06/18 21:42 05:13 07:30 WBC RBC 3.15 L Hgb 9.8 L Hct 29.9 L MCV 95 H MCHC RDW 15.6 H Plt Count 465 H Seg Neuts % (Manual) Lymphocytes % (Manual) Seg Neutrophils # Man Lymphocytes # (Manual) POC ABG pH POC ABG pCO2 Sodium Chloride Carbon Dioxide Creatinine Glucose POC Glucose 257 H 308 H Hemoglobin A1c Lactic Acid AST C-Reactive Protein Albumin 04/06/18 04/06/18 04/06/18 07:30 11:36 15:55 WBC RBC Hgb Hct MCV MCHC RDW Plt Count Seg Neuts % (Manual) Lymphocytes % (Manual) Seg Neutrophils # Man Lymphocytes # (Manual) POC ABG pH POC ABG pCO2 Sodium Chloride Carbon Dioxide 21 L Creatinine 0.6 L Glucose 273 H POC Glucose 263 H 284 H Hemoglobin A1c Lactic Acid AST C-Reactive Protein Albumin
[2018-04-06] MEDS ORDERED: PROVENTIL IH SCH (20:00)
[2018-04-06] MEDS: LATANOPROST 0.005% OU SCH (22:05)
[2018-04-07] MEDS: TESSALON PERLES PO SCH ×3 (06:20→22:06)
[2018-04-07] MEDS: ZOSYN/NS 4.5GM/100ML 4.5 GM/100 ML VIAL IV SCH ×3 (06:21→22:05)
--- NOTE | 2018-04-07 09:26 | Progress Note ---
Assessment and Plan Assessment and plan: Mr. Caceres is a 57 yo man with a history of tonsil cancer, glaucoma, hypertension, type 2 dm and Lung cancer diagnosis last year now with metastatic disease to the right hip and right rib currently on chemotherapy per patient who presented with sob and cough. * pCXR showed bilateral upper lung infiltrates. * CTA chest IMPRESSION: There is no pulmonary embolism. The heart size is normal. There is prominent pericardial fluid.. There is no thoracic aortic aneurysm or dissection.. There are prominent mediastinal and hilar lymph nodes.. There is a spiculated right paratracheal mass measuring 4.5 centimeters. There is a cavitating mass at the right lung base measuring 5 centimeters. These could be inflammatory but malignancy cannot be excluded. There are infiltrates at the right lung base.. There is a small right pleural effusion. There is no pneumothorax.. There is a 1 centimeter sclerotic lesion in T7 which could be a metastatic lesion. There are no pathological fractures.. * CT abd/pelvis wo contrast IMPRESSION: No obvious visceral mass or adenopathy. No acute inflammatory changes. Suspicious right iliac bone lesion as described. Left renal cysts. 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 Anticipate d/c tomorrow, with or without o2 wean down iv steroids which should help with the hyperglycemia, ok to transfer to [facility] History Interval history: Patient was seen and examined. Follow-up on current diagnosis of sob and cough, improving. Overnight uneventful. Patient denies any chest pain, nausea/vomiting or severe headaches. Imaging, nursing note, chart, labs and old chart reviewed. Discussed with patient. Hospitalist Physical - Physical exam Narrative exam: GEN: ill appearing, thin frail, NAD, Awake, Alert, Orientated HEENT: NCAT, EOMI, PERRL, OP Clear NECK: supple, no adenopathy, no thyromegaly, no JVD CVS/HEART: RRR, normal S1S2, pulses present bilaterally CHEST/LUNGS: coarse bs bilaterally, Symmetrical chest expansion, good air entry bilaterally GI/Abdomen: soft, NTND, good bowel sounds, no guarding or rebound /Bladder: no suprapubic tenderness, no CVA or paraspinal tenderness EXT/Skin: no c/c/e, no obvious rash MSK: FROM x 4 Neuro: CN 2-12 grossly intact, no new focal deficits Psych: calm - Constitutional Vitals: Temp Pulse Resp BP Pulse Ox 97.9 F 88 18 146/95 98 04/07/18 07:48 04/07/18 07:48 04/07/18 07:48 04/07/18 07:48 04/07/18 07:48 General appearance: Absent: mild distress Results - Labs CBC & Chem 7: 04/06/18 07:30 04/06/18 07:30 Labs: Laboratory Last Values WBC 8.5 K/mm3 (4.5-11.0) 04/06/18 07:30 RBC 3.15 M/mm3 (3.65-5.03) L 04/06/18 07:30 Hgb 9.8 gm/dl (11.8-15.2) L 04/06/18 07:30 Hct 29.9 % (35.5-45.6) L 04/06/18 07:30 MCV 95 fl (84-94) H 04/06/18 07:30 MCH 31 pg (28-32) 04/06/18 07:30 MCHC 33 % (32-34) 04/06/18 07:30 RDW 15.6 % (13.2-15.2) H 04/06/18 07:30 Plt Count 465 K/mm3 (140-440) H 04/06/18 07:30 Add Manual Diff Complete 04/04/18 04:07 Total Counted 100 04/04/18 04:07 Seg Neutrophils % Relations Manager 04/04/18 04:07 Seg Neuts % (Manual) 62.0 % (40.0-70.0) 04/04/18 04:07 Band Neutrophils % 36.0 % 04/04/18 04:07 Lymphocytes % (Manual) 1.0 % (13.4-35.0) L 04/04/18 04:07 Reactive Lymphs % (Man) 0 % 04/04/18 04:07 Monocytes % (Manual) 1.0 % (0.0-7.3) 04/04/18 04:07 Eosinophils % (Manual) 0 % (0.0-4.3) 04/04/18 04:07 Basophils % (Manual) 0 % (0.0-1.8) 04/04/18 04:07 Metamyelocytes % 0 % 04/04/18 04:07 Myelocytes % 0 % 04/04/18 04:07 Promyelocytes % 0 % 04/04/18 04:07 Blast Cells % 0 % 04/04/18 04:07 Nucleated RBC % Not Reportable 04/04/18 04:07 Seg Neutrophils # Man 6.9 K/mm3 (1.8-7.7) 04/04/18 04:07 Band Neutrophils # 4.0 K/mm3 04/04/18 04:07 Lymphocytes # (Manual) 0.1 K/mm3 (1.2-5.4) L 04/04/18 04:07 Abs React Lymphs (Man) 0.0 K/mm3 04/04/18 04:07 Monocytes # (Manual) 0.1 K/mm3 (0.0-0.8) 04/04/18 04:07 Eosinophils # (Manual) 0.0 K/mm3 (0.0-0.4) 04/04/18 04:07 Basophils # (Manual) 0.0 K/mm3 (0.0-0.1) 04/04/18 04:07 Metamyelocytes # 0.0 K/mm3 04/04/18 04:07 Myelocytes # 0.0 K/mm3 04/04/18 04:07 Promyelocytes # 0.0 K/mm3 04/04/18 04:07 Blast Cells # 0.0 K/mm3 04/04/18 04:07 WBC Morphology Not Reportable 04/04/18 04:07 Hypersegmented Neuts Not Reportable 04/04/18 04:07 Hyposegmented Neuts Not Reportable 04/04/18 04:07 Hypogranular Neuts Not Reportable 04/04/18 04:07 Smudge Cells Not Reportable 04/04/18 04:07 Toxic Granulation Not Reportable 04/04/18 04:07 Toxic Vacuolation Not Reportable 04/04/18 04:07 Dohle Bodies Not Reportable 04/04/18 04:07 Pelger-Huet Anomaly Not Reportable 04/04/18 04:07 Marlene Rods Not Reportable 04/04/18 04:07 Platelet Estimate Consistent w auto 04/04/18 04:07 Clumped Platelets Not Reportable 04/04/18 04:07 Plt Clumps, EDTA Not Reportable 04/04/18 04:07 Large Platelets Not Reportable 04/04/18 04:07 Giant Platelets Not Reportable 04/04/18 04:07 Platelet Satelliting Not Reportable 04/04/18 04:07 Plt Morphology Comment Not Reportable 04/04/18 04:07 RBC Morphology Not Reportable 04/04/18 04:07 Dimorphic RBCs Not Reportable 04/04/18 04:07 Polychromasia Not Reportable 04/04/18 04:07 Hypochromasia Not Reportable 04/04/18 04:07 Poikilocytosis Not Reportable 04/04/18 04:07 Anisocytosis 1+ 04/04/18 04:07 Microcytosis Not Reportable 04/04/18 04:07 Macrocytosis Not Reportable 04/04/18 04:07 Spherocytes Not Reportable 04/04/18 04:07 Pappenheimer Bodies Not Reportable 04/04/18 04:07 Sickle Cells Not Reportable 04/04/18 04:07 Target Cells Not Reportable 04/04/18 04:07 Tear Drop Cells Not Reportable 04/04/18 04:07 Ovalocytes Not Reportable 04/04/18 04:07 Helmet Cells Not Reportable 04/04/18 04:07 Browne-Halsey Bodies Not Reportable 04/04/18 04:07 [place] Rings Not Reportable 04/04/18 04:07 [place] Cells Not Reportable 04/04/18 04:07 Bite Cells Not Reportable 04/04/18 04:07 Crenated Cell Not Reportable 04/04/18 04:07 Elliptocytes Not Reportable 04/04/18 04:07 Acanthocytes (Spur) Not Reportable 04/04/18 04:07 Rouleaux Not Reportable 04/04/18 04:07 Hemoglobin C Crystals Not Reportable 04/04/18 04:07 Schistocytes Not Reportable 04/04/18 04:07 Malaria parasites Not Reportable 04/04/18 04:07 Yaniv Bodies Not Reportable 04/04/18 04:07 Hem Pathologist Commnt No 04/04/18 04:07 POC ABG pH 7.475 (7.35-7.45) H 04/03/18 11:32 POC ABG pCO2 28.7 (35-45) L 04/03/18 11:32 POC ABG pO2 87 (80-105) 04/03/18 11:32 POC ABG HCO3 21.1 04/03/18 11:32 POC ABG Total CO2 22 04/03/18 11:32 POC ABG O2 Sat 97 04/03/18 11:32 POC ABG Base Excess -2 04/03/18 11:32 FiO2 100 % 04/03/18 11:32 Sodium 140 mmol/L (137-145) 04/06/18 07:30 Potassium 4.0 mmol/L (3.6-5.0) 04/06/18 07:30 Chloride 100.7 mmol/L (98-107) 04/06/18 07:30 Carbon Dioxide 21 mmol/L (22-30) L 04/06/18 07:30 Anion Gap 22 mmol/L 04/06/18 07:30 BUN 17 mg/dL (9-20) 04/06/18 07:30 Creatinine 0.6 mg/dL (0.8-1.5) L 04/06/18 07:30 Estimated GFR > 60 ml/min 04/06/18 07:30 BUN/Creatinine Ratio 28 % 04/06/18 07:30 Glucose 273 mg/dL (75-100) H 04/06/18 07:30 POC Glucose 221 (70-105) H 04/07/18 05:33 Hemoglobin A1c 7.2 % (4-6) H 04/03/18 21:53 Osmolality 281 Mosm/kg 04/03/18 23:33 Lactic Acid 1.60 mmol/L (0.7-2.0) 04/04/18 04:07 Calcium 9.4 mg/dL (8.4-10.2) 04/06/18 07:30 Total Bilirubin 0.50 mg/dL (0.1-1.2) 04/04/18 04:07 AST 42 units/L (5-40) H 04/04/18 04:07 ALT 47 units/L (7-56) 04/04/18 04:07 Alkaline Phosphatase 73 units/L (35-129) 04/04/18 04:07 C-Reactive Protein 9.00 mg/dL (0.00-1.30) H 04/05/18 19:59 NT-Pro-B Natriuret Pep 388.8 pg/mL (0-900) 04/03/18 11:06 Total Protein 6.3 g/dL (6.3-8.2) 04/04/18 04:07 Albumin 2.5 g/dL (3.9-5) L 04/04/18 04:07 Albumin/Globulin Ratio 0.7 % 04/04/18 04:07 C. difficile Toxin A&B Negative (Negative) 04/05/18 Unknown
[2018-04-07] MEDS: COZAAR PO SCH (10:14)
[2018-04-07] MEDS: HumaLOG SUB-Q SCH ×4 (10:14→22:07)
[2018-04-07] MEDS: PEPCID PO SCH ×2 (10:14→22:06)
[2018-04-07] MEDS: SODIUM CHLORIDE FLUSH SYRINGE 10 ML IV SCH ×2 (10:15→22:07)
[2018-04-07] MEDS: DUONEB *Not for PRN Use IH SCH ×3 (10:24→22:17)
[2018-04-07] MEDS: GLUCOPHAGE PO SCH (18:19)
--- NOTE | 2018-04-07 20:11 | Progress Note ---
Assessment and Plan - Patient Problems (1) Acute respiratory failure with hypoxia Current Visit: Yes Status: Acute Plan to address problem: Follow pulm. (2) Bilateral pneumonia Current Visit: Yes Status: Acute Plan to address problem: Continue with current ABX/oxygen.Ct to r/o post obst pneumonitis. (3) Anemia Current Visit: Yes Status: Acute Plan to address problem: continue to monitor labs. Subjective Date of service: 04/07/18 Interval history: Patient seen, resting in bed, labs reviewed. Patient seen, restin g in bed, labs reviewed, no new issues at this time. Patient seen, resting in bed, labs/notes reviewed. Objective - Constitutional Vitals: Vital Signs - 12hr 04/07/18 04/07/18 04/07/18 08:51 10:25 10:30 Temperature Pulse Rate 88 Pulse Rate [ 104 H Anterior Bilateral Throughout] Pulse Rate [ 104 H Anterior Bilateral] Respiratory Rate Respiratory 20 Rate [Anterior Bilateral Throughout] Respiratory 20 Rate [Anterior Bilateral] Blood Pressure O2 Sat by Pulse 98 Oximetry 04/07/18 04/07/18 04/07/18 10:38 11:24 15:30 Temperature 97.9 F Pulse Rate 103 H Pulse Rate [ 102 H 100 H Anterior Bilateral Throughout] Pulse Rate [ 102 H 100 H Anterior Bilateral] Respiratory 18 Rate Respiratory 20 20 Rate [Anterior Bilateral Throughout] Respiratory 20 20 Rate [Anterior Bilateral] Blood Pressure 123/77 O2 Sat by Pulse 98 Oximetry 04/07/18 04/07/18 15:39 16:00 Temperature 97.9 F Pulse Rate 101 H Pulse Rate [ 102 H Anterior Bilateral Throughout] Pulse Rate [ 102 H Anterior Bilateral] Respiratory 18 Rate Respiratory 20 Rate [Anterior Bilateral Throughout] Respiratory 20 Rate [Anterior Bilateral] Blood Pressure 138/84 O2 Sat by Pulse 99 Oximetry General appearance: Present: no acute distress, well-nourished - EENT Eyes: PERRL, EOM intact ENT: hearing intact, clear oral mucosa Ears: bilateral: normal - Neck Neck: supple, normal ROM - Respiratory Respiratory: bilateral: diminished - Breasts Breasts: deferred - Cardiovascular Rhythm: regular Heart Sounds: Present: S1 & S2. Absent: gallop, rub Extremities: pulses intact, No edema, normal color, Full ROM - Gastrointestinal General gastrointestinal: Present: soft, non-tender, non-distended, normal bowel sounds Rectal Exam: deferred - Genitourinary Male genitourinary: deferred - Integumentary Integumentary: clear, warm, dry - Musculoskeletal Musculoskeletal: 1, strength equal bilaterally - Neurologic Neurologic: moves all extremities - Psychiatric Psychiatric: memory intact, appropriate mood/affect, intact judgment & insight - Labs CBC & Chem 7: 04/06/18 07:30 04/06/18 07:30 Labs: Abnormal lab results 04/06/18 04/07/18 04/07/18 Range/Units 21:47 05:33 11:21 POC Glucose 247 H 221 H 241 H (70-105) 04/07/18 Range/Units 16:07 POC Glucose 281 H (70-105)
--- NOTE | 2018-04-07 20:26 | Progress Note ---
Subjective Date of service: 04/07/18 Objective Vital Signs - 12hr 04/07/18 04/07/18 04/07/18 08:51 10:25 10:30 Temperature Pulse Rate 88 Pulse Rate [ 104 H Anterior Bilateral Throughout] Pulse Rate [ 104 H Anterior Bilateral] Respiratory Rate Respiratory 20 Rate [Anterior Bilateral Throughout] Respiratory 20 Rate [Anterior Bilateral] Blood Pressure O2 Sat by Pulse 98 Oximetry 04/07/18 04/07/18 04/07/18 10:38 11:24 15:30 Temperature 97.9 F Pulse Rate 103 H Pulse Rate [ 102 H 100 H Anterior Bilateral Throughout] Pulse Rate [ 102 H 100 H Anterior Bilateral] Respiratory 18 Rate Respiratory 20 20 Rate [Anterior Bilateral Throughout] Respiratory 20 20 Rate [Anterior Bilateral] Blood Pressure 123/77 O2 Sat by Pulse 98 Oximetry 04/07/18 04/07/18 15:39 16:00 Temperature 97.9 F Pulse Rate 101 H Pulse Rate [ 102 H Anterior Bilateral Throughout] Pulse Rate [ 102 H Anterior Bilateral] Respiratory 18 Rate Respiratory 20 Rate [Anterior Bilateral Throughout] Respiratory 20 Rate [Anterior Bilateral] Blood Pressure 138/84 O2 Sat by Pulse 99 Oximetry CBC and BMP: 04/06/18 07:30 04/06/18 07:30 ABG, PT/INR, D-dimer: ABG POC ABG pH 7.475 (7.35-7.45) H 04/03/18 11:32 POC ABG pCO2 28.7 (35-45) L 04/03/18 11:32 POC ABG pO2 87 (80-105) 04/03/18 11:32 POC ABG HCO3 21.1 04/03/18 11:32 POC ABG Total CO2 22 04/03/18 11:32 POC ABG O2 Sat 97 04/03/18 11:32 Abnormal lab findings: Abnormal Labs 04/03/18 04/03/18 04/03/18 11:06 11:06 11:06 WBC 16.9 H RBC 3.33 L Hgb 10.8 L Hct 30.6 L MCV MCHC 35 H RDW Plt Count Seg Neuts % (Manual) 94.0 H Lymphocytes % (Manual) 1.0 L Seg Neutrophils # Man 15.9 H Lymphocytes # (Manual) 0.2 L POC ABG pH POC ABG pCO2 Sodium 129 L Chloride 88.1 L Carbon Dioxide 20 L Creatinine 0.5 L Glucose 154 H POC Glucose Hemoglobin A1c Lactic Acid 3.40 H* AST C-Reactive Protein Albumin 3.0 L 04/03/18 04/03/18 04/03/18 11:32 13:14 19:28 WBC RBC Hgb Hct MCV MCHC RDW Plt Count Seg Neuts % (Manual) Lymphocytes % (Manual) Seg Neutrophils # Man Lymphocytes # (Manual) POC ABG pH 7.475 H POC ABG pCO2 28.7 L Sodium Chloride Carbon Dioxide Creatinine Glucose POC Glucose Hemoglobin A1c Lactic Acid 3.60 H* 2.90 H* AST C-Reactive Protein Albumin 04/03/18 04/03/18 04/04/18 21:53 22:51 00:58 WBC RBC Hgb Hct MCV MCHC RDW Plt Count Seg Neuts % (Manual) Lymphocytes % (Manual) Seg Neutrophils # Man Lymphocytes # (Manual) POC ABG pH POC ABG pCO2 Sodium Chloride Carbon Dioxide Creatinine Glucose POC Glucose Hemoglobin A1c 7.2 H Lactic Acid 2.80 H* 2.70 H* AST C-Reactive Protein Albumin 04/04/18 04/04/18 04/04/18 04:07 04:07 05:17 WBC 11.2 H RBC 3.16 L Hgb 9.7 L Hct 29.5 L MCV MCHC RDW Plt Count Seg Neuts % (Manual) Lymphocytes % (Manual) 1.0 L Seg Neutrophils # Man Lymphocytes # (Manual) 0.1 L POC ABG pH POC ABG pCO2 Sodium 133 L Chloride 93.3 L Carbon Dioxide Creatinine 0.5 L Glucose 204 H POC Glucose 198 H Hemoglobin A1c Lactic Acid AST 42 H C-Reactive Protein Albumin 2.5 L 04/04/18 04/04/18 04/04/18 11:30 16:17 22:47 WBC RBC Hgb Hct MCV MCHC RDW Plt Count Seg Neuts % (Manual) Lymphocytes % (Manual) Seg Neutrophils # Man Lymphocytes # (Manual) POC ABG pH POC ABG pCO2 Sodium Chloride Carbon Dioxide Creatinine Glucose POC Glucose 293 H 283 H 307 H Hemoglobin A1c Lactic Acid AST C-Reactive Protein Albumin 04/05/18 04/05/18 04/05/18 06:53 06:53 07:09 WBC RBC 3.10 L Hgb 9.7 L Hct 29.1 L MCV MCHC RDW 15.3 H Plt Count Seg Neuts % (Manual) Lymphocytes % (Manual) Seg Neutrophils # Man Lymphocytes # (Manual) POC ABG pH POC ABG pCO2 Sodium 136 L Chloride 97.0 L Carbon Dioxide Creatinine 0.6 L Glucose 297 H POC Glucose 281 H Hemoglobin A1c Lactic Acid AST C-Reactive Protein Albumin 04/05/18 04/05/18 04/05/18 12:08 16:40 19:59 WBC RBC Hgb Hct MCV MCHC RDW Plt Count Seg Neuts % (Manual) Lymphocytes % (Manual) Seg Neutrophils # Man Lymphocytes # (Manual) POC ABG pH POC ABG pCO2 Sodium Chloride Carbon Dioxide Creatinine Glucose POC Glucose 334 H 282 H Hemoglobin A1c Lactic Acid AST C-Reactive Protein 9.00 H Albumin 04/05/18 04/06/18 04/06/18 21:42 05:13 07:30 WBC RBC 3.15 L Hgb 9.8 L Hct 29.9 L MCV 95 H MCHC RDW 15.6 H Plt Count 465 H Seg Neuts % (Manual) Lymphocytes % (Manual) Seg Neutrophils # Man Lymphocytes # (Manual) POC ABG pH POC ABG pCO2 Sodium Chloride Carbon Dioxide Creatinine Glucose POC Glucose 257 H 308 H Hemoglobin A1c Lactic Acid AST C-Reactive Protein Albumin 04/06/18 04/06/18 04/06/18 07:30 11:36 15:55 WBC RBC Hgb Hct MCV MCHC RDW Plt Count Seg Neuts % (Manual) Lymphocytes % (Manual) Seg Neutrophils # Man Lymphocytes # (Manual) POC ABG pH POC ABG pCO2 Sodium Chloride Carbon Dioxide 21 L Creatinine 0.6 L Glucose 273 H POC Glucose 263 H 284 H Hemoglobin A1c Lactic Acid AST C-Reactive Protein Albumin 04/06/18 04/07/18 04/07/18 21:47 05:33 11:21 WBC RBC Hgb Hct MCV MCHC RDW Plt Count Seg Neuts % (Manual) Lymphocytes % (Manual) Seg Neutrophils # Man Lymphocytes # (Manual) POC ABG pH POC ABG pCO2 Sodium Chloride Carbon Dioxide Creatinine Glucose POC Glucose 247 H 221 H 241 H Hemoglobin A1c Lactic Acid AST C-Reactive Protein Albumin 04/07/18 16:07 WBC RBC Hgb Hct MCV MCHC RDW Plt Count Seg Neuts % (Manual) Lymphocytes % (Manual) Seg Neutrophils # Man Lymphocytes # (Manual) POC ABG pH POC ABG pCO2 Sodium Chloride Carbon Dioxide Creatinine Glucose POC Glucose 281 H Hemoglobin A1c Lactic Acid AST C-Reactive Protein Albumin
[2018-04-07] MEDS: LATANOPROST 0.005% OU SCH (22:07)
[2018-04-08] MEDS: TESSALON PERLES PO SCH ×2 (05:42→16:33)
[2018-04-08] MEDS: ZOSYN/NS 4.5GM/100ML 4.5 GM/100 ML VIAL IV SCH ×2 (05:42→16:33)
[2018-04-08] MEDS: HumaLOG SUB-Q SCH ×3 (07:30→16:33)
[2018-04-08] MEDS: DUONEB *Not for PRN Use IH SCH ×2 (08:00→13:22)
[2018-04-08] MEDS: GLUCOPHAGE PO SCH (09:01)
[2018-04-08] MEDS: COZAAR PO SCH (11:02)
[2018-04-08] MEDS: PEPCID PO SCH (11:03)
[2018-04-08] MEDS: SODIUM CHLORIDE FLUSH SYRINGE 10 ML IV SCH (11:03)
--- NOTE | 2018-04-08 12:49 | Discharge Summary ---
Providers - Providers Date of Admission: 04/03/18 13:45 Date of discharge: 04/08/18 Attending physician: VAL BIANEZ 04/03/18 21:53 Consult to Physician [CONS] Routine Comment: Consulting Provider: YANELY PHILIP Physician Instructions: Reason For Exam: Lung Ca 04/03/18 22:39 Consult to Physician [CONS] Routine Comment: Consulting Provider: JULISSA VINCENT Physician Instructions: Reason For Exam: Lung Ca 04/04/18 14:08 Consult to Dietitian/Nutrition [CONS] Routine Physician Instructions: Reason For Exam: Reason for Consult: Malnutrition 04/04/18 14:10 Speech Therapy Evaluation and Treat [CONS] Urgent Reason For Exam: op dysphagia 04/05/18 18:07 Consult to Case Management [CONS] Urgent Services Needed at Discharge: Other Notified:: No Additional Physician Instructions: need old records from [facility] Pulmonary and Oncology team Thanks Primary care physician: [employer] [facility] Hospitalization Condition: Fair Hospital course: Mr. Caceres is a 57 yo man with a history of tonsil cancer, glaucoma, hypertension, type 2 dm and Lung cancer diagnosis last year now with metastatic disease to the right hip and right rib currently on chemotherapy per patient who presented with sob and cough. * pCXR showed bilateral upper lung infiltrates. * CTA chest IMPRESSION: There is no pulmonary embolism. The heart size is normal. There is prominent pericardial fluid.. There is no thoracic aortic aneurysm or dissection.. There are prominent mediastinal and hilar lymph nodes.. There is a spiculated right paratracheal mass measuring 4.5 centimeters. There is a cavitating mass at the right lung base measuring 5 centimeters. These could be inflammatory but malignancy cannot be excluded. There are infiltrates at the right lung base.. There is a small right pleural effusion. There is no pneumothorax.. There is a 1 centimeter sclerotic lesion in T7 which could be a metastatic lesion. There are no pathological fractures.. * CT abd/pelvis wo contrast IMPRESSION: No obvious visceral mass or adenopathy. No acute inflammatory changes. Suspicious right iliac bone lesion as described. Left renal cysts. Sepsis from Bilateral Aspiration pneumonia poa improved WBC from 16.9 to 11.2: continue iv zosyn,add antitussive, speech evaluation Acute respiratory failure with hypoxia: Continue oxygen as needed Duonebs IV Solu-Medrol and IV Zosyn Hyponatremia believed to be SIADH, resolved hyponatremia Severe malnutrition, albumin 2.5: consult [employer], add Ensure supplementation Uncontrolled type 2 DM with hyperglycemia, a1c 7.2: continue metformin, add ssi (pt has been refusing insulin), ada diet Anemia, appears chronic, steady: cbc in am Stage 4 Lung cancer with bone mets: Patient follows with [facility], Dr Vincent consulted HTN (hypertension): Continue antihypertensives DVT prophylaxis: Patient initiated on Lovenox 40 mg subcutaneous daily Today, patient is off o2, i checked his pulse ox at rest and it was 94% d/w Dr. Henry, ok to discharge Disposition: DC-01 TO HOME OR SELFCARE Time spent for discharge: 35 minutes Core Measure Documentation - Palliative Care Palliative Care/ Comfort Measures: Not Applicable - Core Measures Any of the following diagnoses?: none - VTE Discharge Requirements Deep Vein Thrombosis/Pulmonary Embolism Present on Admission: No Has pt received <5 days of overlap therapy or INR<2.0: No Anticoagulant overlap therapy prescribed at discharge: No Contraindication No Overlap Therapy order at DC: Not Indicated Exam - Physical Exam Narrative exam: GEN: ill appearing, thin frail, NAD, Awake, Alert, Orientated x 3 HEENT: NCAT, EOMI, PERRL, OP Clear NECK: supple, no adenopathy, no thyromegaly, no JVD CVS/HEART: RRR, normal S1S2, pulses present bilaterally CHEST/LUNGS: coarse bs bilaterally but much better, Symmetrical chest expansion , good air entry bilaterally GI/Abdomen: soft, NTND, good bowel sounds, no guarding or rebound /Bladder: no suprapubic tenderness, no CVA or paraspinal tenderness EXT/Skin: no c/c/e, no obvious rash MSK: FROM x 4 Neuro: CN 2-12 grossly intact, no new focal deficits Psych: calm - Constitutional Vitals: Temp Pulse Resp BP Pulse Ox 97.4 F L 91 H 20 143/91 98 04/08/18 08:01 04/08/18 08:17 04/08/18 08:17 04/08/18 08:01 04/08/18 08:12 Plan Activity: other (no strenous activity until cleared by pcp or oncologist, including work) Diet: regular Follow up with: PRIMARY CARE, [Primary Care Provider] - 3-5 Days Forms: Work/School Release Form Prescriptions: Acetaminophen [Acetaminophen TAB] 650 mg PO Q4H PRN #20 tablet PRN Reason: Pain MILD(1-3)/Fever >100.5/FALL ALBUTEROL Inhaler [ProAir HFA Inhaler] 2 puff IH QID PRN #1 inhalation PRN Reason: Shortness Of Breath Benzonatate [Tessalon Perles] 100 mg PO Q8HR PRN #15 capsule PRN Reason: Cough Famotidine [Pepcid] 20 mg PO BID #14 tablet Levofloxacin [Levaquin] 750 mg PO QDAY #5 tablet methylPREDNISolone [Medrol Dose Ean] 1 dose PO DAILY #1 pack oxyCODONE /ACETAMINOPHEN [Percocet 5/325 mg] 1 tab PO Q6H PRN #12 tablet PRN Reason: Pain , Severe (7-10) Ipratropium/Albuterol Sulfate [DUONEB *Not for PRN Use*] 1 ampul IH TIDRT #30 ampul.neb
[2018-04-08 14:40] VITALS: BP 148/90
== END 2018-04-08 16:15 | disposition home or self-care (01) | DRG 871 ==
LOC: ED 09:45 → 4A 13:45
PROVIDERS: ADMIT Internal Medicine; ATTEND Internal Medicine
PROC: 4A033R1 Measurement of Arterial Saturation, Peripheral, Percutaneous Approach (ICD-10-PCS; principal; 2018-04-03)
DX: A41.9 Sepsis, unspecified organism (principal); J96.01 Acute respiratory failure with hypoxia; E43 Unspecified severe protein-calorie malnutrition; J69.0 Pneumonitis due to inhalation of food and vomit; E87.2 Acidosis; C34.90 Malignant neoplasm of unspecified part of unspecified bronchus or lung; C79.89 Secondary malignant neoplasm of other specified sites; C79.51 Secondary malignant neoplasm of bone; E22.2 Syndrome of inappropriate secretion of antidiuretic hormone; I10 Essential (primary) hypertension; Z87.891 Personal history of nicotine dependence; Z79.84 Long term (current) use of oral hypoglycemic drugs; E86.0 Dehydration; E11.65 Type 2 diabetes mellitus with hyperglycemia; D64.9 Anemia, unspecified; H40.9 Unspecified glaucoma; Z68.23 Body mass index [BMI] 23.0-23.9, adult
CPT/HCPCS: 36415; 71045; 71250; 71275; 74176; 80048; 80053; 82140; 82803; 82962; 83036; 83880; 83930; 85007; 85025; 85027; 86140; 87040; 87045; 87070; 87205; 87324; 93005; 93010; 94640; 94760; J1815; J1940; J2543; J2920; J2930; J7030; Q9967